=== PATIENT | male | born 1945 | race Caucasian/White ===

== ENCOUNTER 2017-10-18 07:51 | Outpatient (CLI) | payer MEDICARE, BC ==
[~2017-10-18] VITALS: Ht 182.9 cm; Wt 65.8 kg
--- NOTE | ~2017-10-18 | HEMODYNAMI ---
PATIENT:JUAN YEE MEDICAL RECORD: [id number] : 43 LOCATION:[address] ADMISSION DATE: 10/18/17 Generatedon:10/19/20178:47 Patient name: JUAN YEE Patient #: [id number] SSN: : 1945 Date of study: 10/19/2017 Page: Of Hemodynamic Procedure Report Patient Data Patient Demographics Procedure consent was obtained First Name: JUAN Gender: Male Last Name: NAKIA : 1945 [facility] Initial: KAMALJIT Age: 72 year(s) Patient #: [id number] Race: Unknown Additional ID: [id number] Contact details [address]: [address] [place] [address] [address]IVE State: [place] City: [place] Zip code: [address] Past Medical History Allergies: No known allergies Admission Admission Data Admission Date: 10/18/2017 Admission Time: 7:51 Room #: 2124 Procedure Procedure Types Cath Procedure PCI Procedure PTCA PTCA Initial Miscellaneous Procedures Moderate Sedation up to 30 minutes Peripheral Cath Diagnostic Procedure Cath Peripheral Gpkkl-Vzqgfkc-Mqr-Off Peripheral vascular Intervention Stent Stent Iliac w/plasty Initial Procedure Description Procedure Date Procedure Date: 10/19/2017 Procedure Start Time: 8:16 Procedure End Time: 8:47 Procedure Staff Name Function Kaushal Mccoy MD Performing Physician Monica Estrada RT Monitor Juliocesar Houser RT Scrub Moody Boykin RN Nurse Radha Sanchez RN Nurse Procedure Data Cath Procedure Fluoroscopy Diagnostic fluoroscopy Total fluoroscopy Time: 6.4 time: 6.4 min min Diagnostic fluoroscopy Total fluoroscopy dose: 394 dose: 394 mGy mGy Contrast Material Contrast Material Type Amount (ml) Isovue 300 114 Entry Location Entry Primary Successful Side Size Upsize 1 Upsize Entry Closure Irving ccessful Closure Location (Fr) (Fr) 2 (Fr) Remarks Device Remarks Femoral Right 6 Fr 6 Fr Exoseal artery Short Mid-Length Estimated blood loss: 10 ml Diagnostic catheters Device Type Used For End Catheter Placement Diagnostic Infinity 5Fr Abdominal Pigtail catheter aortogram with runoff Procedure Complications No complications Procedure Medications Medication Administration Route Dosage 0.9% NaCl I.V. 100 ml/hr Oxygen NC 2 l/min Heparin Flush Bag added to field 2 bags (1000units/500ml NS) Lidocaine 2% added to field 20 Fentanyl I.V. 50 mcg Versed I.V. 2 mg Versed I.V. 1 mg Fentanyl I.V. 50 mcg Heparin Bolus I.V. 5000 units Versed I.V. 1 mg Fentanyl I.V. 50 mcg Fentanyl I.V. 25 mcg Hemodynamics Rest Heart Rate: 76 (bpm) Snapshots Pre Cath Intra NCS Post Cath Vital Signs Time Heart Resp SPO2 etCO2 NIBP (mmHg) Rhythm Pain Sedation Rate (ipm) (%) (mmHg) Status Level (bpm) 7:49:43 75 17 94 18 130/80(108) NSR 0 (11) 10(A) , No pain 7:54:22 72 16 95 28.5 132/74(109) NSR 0 (11) 10(A) , No pain 7:59:02 69 14 95 32.3 147/74(105) NSR 0 (11) 10(A) , No pain 8:03:45 74 14 95 30 120/82(106) NSR 0 (11) 10(A) , No pain 8:08:44 64 14 95 18 Measuring NSR 0 (11) 10(A) , No pain 8:08:56 66 14 95 17.2 125/75(109) NSR 0 (11) 10(A) , No pain 8:13:33 65 14 96 10.5 130/79(111) NSR 0 (11) 10(A) , No pain 8:18:09 69 19 95 28.6 140/77(109) NSR 0 (11) 9(A) , No pain 8:22:50 65 17 95 33 146/74(110) NSR 0 (11) 9(A) , No pain 8:27:33 67 18 96 30.8 139/70(111) NSR 0 (11) 10(A) , No pain 8:32:15 73 18 96 33 133/65(97) NSR 0 (11) 9(A) , No pain 8:36:52 80 18 96 30.8 147/82(103) NSR 0 (11) 10(A) , No pain 8:41:32 74 18 97 32.3 144/75(109) NSR 0 (11) 10(A) , No pain 8:46:13 77 11 96 35.3 133/78(100) NSR 0 (11) 10(A) , No pain Medications Time Medication Route Dose Verified Delivered Reason Note s Effectiveness by by 7:49:28 0.9% NaCl I.V. 100ml/hr Kaushal Uriostegui used for Darius Boykin RN procedure 7:49:44 Oxygen NC 2 l/min Kaushal Uriostegui used for Darius Boykin RN procedure 7:50:00 Heparin Flush added 2 bags Kaushal Easley used for Bag to Darius Mccoy MD procedure (1000units/500ml field NS) 7:50:19 Lidocaine 2% added 20ml Kaushal Easley for local to vial Darius Mccoy MD anesthetic field 8:16:04 Fentanyl I.V. 50 mcg Kaushal Radha for sedation Darius Sanchez RN 8:16:16 Versed I.V. 2 mg Kaushal Radha for sedation Darius Sanchez RN 8:21:38 Versed I.V. 1 mg Kaushal Radha for sedation Darius Sanchez RN 8:21:45 Heparin Bolus I.V. 5000 Kaushal Radha for veri fied units Darius Sanchez RN anticoagulation with 8:21:45 Fentanyl I.V. 50 mcg Kaushal Radha for sedation Darius Sanchez RN 8:25:30 Versed I.V. 1 mg Kaushal Jimenezfany for sedation Darius Sanchez RN 8:25:39 Fentanyl I.V. 50 mcg Kaushal Radha for sedation Darius Sanchez RN 8:28:03 Fentanyl I.V. 25 mcg Kaushal Radha for sedation Darius Sanchez RN Procedure Log Time Note 7:31:04 Moody Boykin RN sent for patient. Start room use. 7:31:05 Time tracking: Regular hours 7:31:11 Plan of Care:Hemodynamics will remain stable., Cardiac rhythm will remain stable., Comfort level will be maintained., Respiratory function will remain adequate., Patient/ family verbilizes understanding of procedure., Procedure tolerated without complication., Recovers from procedure without complications.. 7:38:58 Patient received from PCU to CCL 1 Alert and oriented. Tansferred to table in Supine position. 7:39:00 Warm blankets applied, and marino hugger turned on for patient comfort. 7:39:01 Correct patient and procedure confirmed by team. 7:39:02 Signed procedure consent form obtained from patient. 7:39:03 ECG and BP/O2 sat monitors applied to patient. 7:39:50 H&P Date Dictated: 10/18/2017 Within 30 days and on chart.. 7:42:46 Pre-procedure instructions explained to patient. 7:42:47 Pre-op teaching completed and patient verbalized understanding. 7:42:48 Family in waiting room. 7:42:49 Patient NPO since Midnight. 7:42:54 Patient allergic to No known allergies 7:42:56 Is the patient allergic to Iodine/contrast media? No. 7:42:57 Is patient on blood thinner?Yes 7:42:59 ACC The patient was administered the following blood thiners within the last 24 hours: ACCPlavix 7:43:01 Patient diabetic? No. 7:43:04 Previous problem with sedation/anesthesia? Yes nausea 7:43:06 Snore? No 7:43:06 Sleep apnea? No 7:43:07 Deviated septum? No 7:43:08 Opens mouth fully? Yes 7:43:09 Sticks out tongue? Yes 7:43:11 Airway obstruction? No ? 7:43:14 Dentures? Yes In tight 7:47:05 Pre procedure: right dorsailis pedis pulse 2+ Normal; easily identifiable; not easily obliterated 7:47:10 Patient pain scale 0/10 ?. 7:47:22 IV patent on arrival in left forearm with 0.9% NaCl at KVO. 7:47:32 Lab results completed and on chart. 7:47:36 Right groin area was prepped with chlora-prep and draped in sterile fashion 7:47:38 Alarms reviewed by R. N. 7:47:38 Sharps counted by scrub and verified by R.N. 7:47:43 Use device set Femoral PCI 7:47:44 Acist Syringe opened to sterile field. 7:47:44 Acist Hand Control opened to sterile field. 7:47:45 Bag Decanter opened to sterile field. 7:47:45 Medline Cath Pack opened to sterile field. 7:47:46 Terumo 6Fr [place] Sheath opened to sterile field. 7:47:46 St Solitario 260cm J .035 wire opened to sterile field. 7:47:47 Merit BasixCompak Inflation Kit opened to sterile field. 7:47:48 Acist Manifold opened to sterile field. 7:47:48 Tegaderm 4 x 4 opened to sterile field. 7:48:47 Baseline sample Acquired. 7:48:54 Vital chart was started 7:48:57 Rhythm: sinus rhythm 7:49:03 Full Disclosure recording started 7:49:28 0.9% NaCl 100ml/hr I.V. was administered by Moody Boykin RN; used for procedure; 7:49:44 Oxygen 2 l/min NC was administered by Moody Boykin RN; used for procedure; 7:50:00 Heparin Flush Bag (1000units/500ml NS) 2 bags added to field was administered by Kaushal Mccoy MD; used for procedure; 7:50:19 Lidocaine 2% 20ml vial added to field was administered by Kaushal Mccoy MD; for local anesthetic; 8:00:04 Physician paged 8:03:29 Zero performed for pressure channel P1 8:03:33 Zero performed for pressure channel P1 8:03:36 Zero performed for pressure channel P1 8:03:39 Zero performed for pressure channel P1 8:13:22 Final Timeout: patient, procedure, and site verified with staff and physician. All members of the team are in agreement. 8:13:24 Right groin site verified by team. 8:13:27 Physical assessment completed. ASA score P 2 - A patient with mild systemic disease as per Kaushal Mccoy MD. 8:13:31 Sedation plan: IV Moderate Sedation Medication:Versed, Fentanyl 8:13:43 Cordis 6FR XB 4.0 guide catheter opened to sterile field. 8:16:04 Fentanyl 50 mcg I.V. was administered by Radha Sanchez RN; for sedation; 8:16:16 Versed 2 mg I.V. was administered by Radha Sanchez RN; for sedation; 8:16:16 Procedure started. 8:16:21 Local anesthetic to right femoral artery with Lidocaine 2% by Kaushal Mccoy MD.INITIAL ACCESS ONLY 8:16:39 A 6 Fr Short sheath was inserted into the Right Femoral artery 8:17:44 Terumo ANGLE 260cm glide wire opened to sterile field. 8:18:12 A Diagnostic Infinity 5Fr Pigtail catheter was advanced over the wire and used for Abdominal aortogram with runoff. 8:19:56 Cordis 6Fr Brite Tip 35cm Sheath opened to sterile field. 8:20:08 Procedure type changed to Cath procedure, PCI procedure, PTCA, PTCA Initial, Miscellaneous Procedures, Moderate Sedation up to 30 minutes, Peripheral Cath Diagnostic Procedure, Cath Peripheral, Rwgcb-Kuprhzh-Qqn-Off, Peripheral vascular Intervention, Stent, Stent Iliac w/plasty Initial 8:21:08 Catheter removed. 8:21:24 Sheath upsized to a 6 Fr Mid-Length. 8:21:38 Versed 1 mg I.V. was administered by Radha Sanchez RN; for sedation; 8:21:45 Heparin Bolus 5000 units I.V. was administered by Radha Sanchez RN; for anticoagulation; verified with 8:21:45 Fentanyl 50 mcg I.V. was administered by Radha Sanchez RN; for sedation; 8:25:30 Versed 1 mg I.V. was administered by Rahda Sanchez RN; for sedation; 8:25:39 Fentanyl 50 mcg I.V. was administered by Radha Sanchez RN; for sedation; 8:25:51 Inflation Number: 1 A Cordis Azeb 7 x 18 x 135 stent was prepped and advanced across the Mid External Iliac, Right. The stent was deployed at 11 RAMA for 0:16 (min:sec). 8:26:23 Stent catheter was removed intact over wire. 8:27:35 6 Fr XB 4.0 guide catheter was inserted over the wire 8:28:03 Fentanyl 25 mcg I.V. was administered by Radha Sanchez RN; for sedation; 8:28:24 Guide Catheter removed. unable to cannulate vessel. 8:30:18 [place] Sci Mach 1 6Fr Q 5.0 guide catheter opened to sterile field. 8:30:27 6 Fr Q5.0 guide catheter was inserted over the wire 8:32:08 Choice PT ES wire advanced. 8:34:37 Inflation number: 1 A Euphora 1.5 x 20 Balloon was prepped and advanced across the Prox CX, then inflated to 21 RAMA for 0:12 (min:sec). 8:34:51 Inflation number: 2 The Euphora 1.5 x 20 Balloon was reinflated across the Prox CX, to 21 RAMA for 0:12 (min:sec). 8:35:16 Inflation number: 3 The Euphora 1.5 x 20 Balloon was reinflated across the Prox CX, to 21 RAMA for 0:09 (min:sec). 8:36:00 Balloon removed over the wire. 8:36:59 Inflation number: 4 A Euphora 2.0 x 15 Balloon was prepped and advanced across the Prox CX, then inflated to 15 RAMA for 0:12 (min:sec). 8:37:09 Inflation number: 5 The Euphora 2.0 x 15 Balloon was reinflated across the Prox CX, to 15 RAMA for 0:07 (min:sec). 8:37:57 Balloon removed over the wire. 8:39:26 Wire removed. 8:39:26 Guide catheter removed. 8:39:41 UNABLE TO OPEN CIRC. PROCEDURE ABORTED. 8:39:48 Sheath removed intact; hemostasis achieved with Exoseal to the Right Femoral artery. 8:39:56 Cordis 6Fr Exoseal opened to sterile field. 8:39:58 Procedure ended.(Physican Out) 8:40:15 Fluoroscopy time 06.40 minutes. 8:40:19 Flurop Dose total: 394 8:40:19 Fluoroscopy dose: 394 mGy 8:40:28 Contrast amount:Isovue 300 114ml. 8:40:32 Sharps counted by scrub and verified by R.N. 8:40:33 Insertion/operative site no bleeding no hematoma. 8:40:36 Post-op/insertion site Right Femoral artery dressed using a 4 x 4 and Tegaderm. 8:40:39 Post right femoral artery:stable, clean and dry 8:40:40 Post Procedure Pulses reassessed and unchanged 8:40:43 Post-procedure physical assessment completed. ASA score P 2 - A patient with mild systemic disease as per Kaushal Mccoy MD. 8:40:45 Post procedure rhythm: unchanged. 8:40:48 Estimated blood loss: 10 ml 8:40:49 Post procedure instruction explained to patient.Patient verbalizes understanding. 8:40:49 Patient needs reinforcement of post procedure teaching. 8:41:25 Procedure Complication : No complications 8:41:27 See physician's report for complete and final results. 8:44:03 [place] Sci Choice PT Extra Support J 300cm .014 gu opened to sterile field. 8:45:13 Procedure and supply charges have been captured, reviewed, submitted and are correct. 8:47:12 Vital chart was stopped 8:47:16 Report given to PCU. 8:47:19 Patient transfered to PCU with Bed. 8:47:28 Procedure ended. 8:47:28 Full Disclosure recording stopped 8:47:31 End room use (Document Last) Intervention Summary Intervention Notes Time ActionType Lesion and Equipment Action# Pressure Duration Attributes Used 8:25:51 Place stent Mid Cordis 1 11 00:16 External Azeb 7 Iliac, x 18 x Right 135 stent 8:34:37 Inflate Prox CX Euphora 1 21 00:12 balloon 1.5 x 20 Balloon 8:34:51 Reinflate Prox CX Euphora 2 21 00:12 balloon 1.5 x 20 Balloon 8:35:16 Reinflate Prox CX Euphora 3 21 00:09 balloon 1.5 x 20 Balloon 8:36:59 Inflate Prox CX Euphora 4 15 00:12 balloon 2.0 x 15 Balloon 8:37:09 Reinflate Prox CX Euphora 5 15 00:07 balloon 2.0 x 15 Balloon Device Usage Item Name Manufacture Quantity Catalog Number Hospital Part Current Minim al Lot# / Charge Number Stock Stock Serial# Code Acist Acist 1 33244 [id number] [id number] [id number] 20 Syringe Medical Systems Inc Acist Hand Acist 1 52693 625997 039224 [id number] 5 Control Medical Systems Inc Bag Microtek 1 2002S 641000 17246 [id number] 5 DecMegapolygon Corporation Medical Inc. Medline Cardinal 1 [id number] 332075 68844 547925 5 Cath Pack Quant the News Terumo 6Fr Terumo 1 [id number] 572011 596583 797255 [address] Solitario 1 [id number] 764170 793958 084229 30 260cm J .035 wire Merit Merit 1 [id number] 834329 213142 174121 15 BasixComSangamo [employer]iences Medical Inflation Kit Acist Acist 1 93650 276506 780861 003277 5 Manifold Medical Systems Inc Tegaderm 4 3M 1 1626W 415509 067736 913682 5 x 4 Cordis 6FR Cardinal 1 [id number] 008051 191839 093495 2 XB 4.0 Health guide catheter Terumo Terumo 1 [id number] 033960 736926 489161 5 ANGLE 260cm glide wire Diagnostic Cardinal 1 [id number] 414032 714332 199644 5 Infinity Health 5Fr Pigtail catheter Cordis 6Fr Cardinal 1 [id number] 849832 144461 605592 1 Brite Tip Health 35cm Sheath Cordis Cardinal 1 [id number] 588124 701838 5 [id number] Azeb 7 x Health 18 x 135 stent [place] Sci [place] 1 [id number] 493025 514023 415379 0 Mach 1 6Fr Scientific Q 5.0 guide catheter Euphora 1.5 Medtronic 1 [id number] 738067 153039 875892 5 [id number] x 20 Balloon Euphora 2.0 Medtronic 1 [id number] 925219 847110 071561 5 [id number] x 15 Balloon Cordis 6Fr Cardinal 1 [id number] 022567 416547 981381 10 Exoseal Health [place] Sci [place] 1 [id number] 124716 268736 221474 5 Choice PT Scientific Extra Support J 300cm .014 gu Signature Audit [place] Stage Time Signature Unsigned Intra-Procedure 10/19/2017 Monica 8:47:46 AM Counts RT(R) Signatures Monitor : Monica Signature : Counts RT Date : Time : [facility] [address] [place] [address]
--- NOTE | ~2017-10-18 | HEMODYNAMI ---
PATIENT:JUAN YEE MEDICAL RECORD: [id number] : 43 LOCATION:D.CAT ADMISSION DATE: 10/18/17 Generatedon:10/18/201711:34 Patient name: JUAN YEE Patient #: [id number] SSN: : 1945 Date of study: 10/18/2017 Page: Of Hemodynamic Procedure Report Patient Data Patient Demographics Procedure consent was obtained First Name: JUAN Gender: Male Last Name: NAKIA : 1945 Middle Initial: KAMALJIT Age: 72 year(s) Patient #: [id number] Race: Unknown Additional ID: [id number] Contact details Address: [address] [place] [address] DRIVE State: [place] City: [place] Zip code: [address] Past Medical History Allergies: No known allergies Admission Admission Data Admission Date: 10/18/2017 Admission Time: 7:51 Procedure Procedure Types Cath Procedure Diagnostic Procedure LHC LHC w/Coronaries FFR/IVUS Intra-Coronary IVUS Initial PCI Procedure Coronary Stent Coronary Stent Initial Miscellaneous Procedures Moderate Sedation up to 30 minutes Procedure Description Procedure Date Procedure Date: 10/18/2017 Procedure Start Time: 11:08 Procedure End Time: 11:33 Procedure Staff Name Function Kaushal Mccoy MD Performing Physician Monica Estrada RT Monitor Carolyne Camargo RT Scrub Radha Sanchez RN Nurse Moody Boykin RN Nurse Procedure Data Cath Procedure Fluoroscopy Diagnostic fluoroscopy Total fluoroscopy Time: 8.5 time: 8.5 min min Diagnostic fluoroscopy Total fluoroscopy dose: 601 dose: 601 mGy mGy Contrast Material Contrast Material Type Amount (ml) Isovue 300 126 Entry Location Entry Primary Successful Side Size Upsize Upsize Entry Closure [place] ccessful Closure Location (Fr) 1 (Fr) 2 (Fr) Remarks Device Remarks Radial Right 6 Fr Mechanical artery Short Compression Estimated blood loss: 10 ml Diagnostic catheters Device Type Used For End Catheter Placement Diagnostic Terumo 5Fr LV Angiography [employer] [place] 110cm catheter Diagnostic Terumo 5Fr Right Coronary [employer] [place] 110cm catheter Angiography Procedure Complications No complications Procedure Medications Medication Administration Route Dosage 0.9% NaCl I.V. 100 ml/hr Oxygen NC 2 l/min Lidocaine 2% added to field 20 Heparin Flush Bag added to field 2 bags (1000units/500ml NS) Radial Cocktail added to field 1 syringe (Verapomil 2mg/Nitro 400mcg/Heparin 1500units) Versed I.V. 1 mg Fentanyl I.V. 50 mcg Fentanyl I.V. 50 mcg Versed I.V. 1 mg Heparin Bolus I.V. 4000 units Versed I.V. 1 mg Hemodynamics Rest Heart Rate: 58 (bpm) Snapshots Pre Cath Intra NCS Post Cath Vital Signs Time Heart Resp SPO2 etCO2 NIBP (mmHg) Rhythm Pain Sedation Rate (ipm) (%) (mmHg) Status Level (bpm) 10:28:56 62 17 96 12.8 135/73(114) NSR 0 (11) 10(A) , No pain 10:33:36 62 16 97 13.5 134/79(115) NSR 0 (11) 10(A) , No pain 10:38:17 50 14 99 15.8 129/70(110) NSR 0 (11) 10(A) , No pain 10:43:16 53 14 97 3 Measuring NSR 0 (11) 10(A) , No pain 10:43:30 52 14 98 1.5 130/72(108) NSR 0 (11) 10(A) , No pain 10:48:09 54 16 95 0.7 132/71(101) NSR 0 (11) 10(A) , No pain 10:52:50 54 16 97 8.2 138/69(100) NSR 0 (11) 10(A) , No pain 10:57:30 50 16 95 16.5 134/69(108) NSR 0 (11) 10(A) , No pain 11:02:09 61 14 97 26.3 144/72(96) NSR 0 (11) 10(A) , No pain 11:07:08 60 19 97 4.5 Measuring NSR 0 (11) 9(A) , No pain 11:07:16 56 19 97 13.5 135/64(107) NSR 0 (11) 9(A) , No pain 11:11:52 73 14 97 9.7 116/66(85) NSR 0 (11) 10(A) , No pain 11:16:29 74 16 95 11.3 126/62(88) NSR 0 (11) 9(A) , No pain 11:21:05 73 16 94 2.2 119/69(102) NSR 0 (11) 9(A) , No pain 11:25:42 73 17 94 0 124/68(105) NSR 0 (11) 10(A) , No pain 11:30:18 71 19 94 9 130/70(101) NSR 0 (11) 10(A) , No pain Medications Time Medication Route Dose Verified Delivered Reason Not es Effectiveness by by 10:30:41 0.9% NaCl I.V. 100ml/hr Kaushal Garcia Per physician Darius Sanchez RN 10:30:56 Oxygen NC 2 l/min Kaushal Jimenezfany used for Darius Sanchez RN procedure 10:31:12 Lidocaine 2% added 20ml Kaushal Kaushal for local to vial Darius Mccoy MD anesthetic field 10:44:20 Heparin Flush added 2 bags Kaushalcaterina Easley used for Bag to Darius Mccoy MD procedure (1000units/500ml field NS) 10:44:37 Radial Cocktail added 1 Kaushal Kaushal for (Verapomil to syringe Darius Mccoy MD vasodilation 2mg/Nitro field 400mcg/Heparin 1500units) 11:07:12 Versed I.V. 1 mg Kaushal Jimenezfany for sedation Darius Sanchez RN 11:07:23 Fentanyl I.V. 50 mcg Kaushal Jimenezfany for sedation Darius Sanchez RN 11:09:49 Fentanyl I.V. 50 mcg Kaushal Jimenezfany for sedation Darius Sanchez RN 11:10:02 Versed I.V. 1 mg Kaushal Radha for sedation Darius Sanchez RN 11:15:26 Heparin Bolus I.V. 4000 Kaushal Radha for abiodun ified units Darius Sanchez RN anticoagulation by 11:15:54 Versed I.V. 1 mg Kaushal Jimenezfany for sedation Darius Sanchez RN Procedure Log Time Note 10:11:35 Moody Boykin RN sent for patient. Start room use. 10:11:36 Time tracking: Regular hours 10:11:40 Plan of Care:Hemodynamics will remain stable., Cardiac rhythm will remain stable., Comfort level will be maintained., Respiratory function will remain adequate., Patient/ family verbilizes understanding of procedure., Procedure tolerated without complication., Recovers from procedure without complications.. 10:19:12 Patient received from Pre/Post Procedure Room to CCL 1 Alert and oriented. Tansferred to table in Supine position. 10:19:14 Warm blankets applied, and marino hugger turned on for patient comfort. 10:19:14 Correct patient and procedure confirmed by team. 10:19:16 Signed procedure consent form obtained from patient. 10:19:17 ECG and BP/O2 sat monitors applied to patient. 10:28:04 Vital chart was started 10:30:41 0.9% NaCl 100ml/hr I.V. was administered by Radha Sanchez RN; Per physician; 10:30:56 Oxygen 2 l/min NC was administered by Radha Sanchez RN; used for procedure; 10:31:12 Lidocaine 2% 20ml vial added to field was administered by Kaushal Mccoy MD; for local anesthetic; 10:32:06 Baseline sample Acquired. 10:32:07 Full Disclosure recording started 10:32:10 Rhythm: sinus tachycardia 10:33:03 H&P Date Dictated: 10/18/2017 Within 30 days and on chart., H&P Addendum completed by physician on day of procedure. (MUST COMPLETE FOR ALL OUTPATIENTS). 10:33:05 Pre-procedure instructions explained to patient. 10:33:05 Pre-op teaching completed and patient verbalized understanding. 10:33:06 Family in waiting room. 10:33:08 Patient NPO since Midnight. 10:33:17 Patient allergic to No known allergies 10:33:20 Is the patient allergic to Iodine/contrast media? No. 10:33:22 Is patient on blood thinner?Yes 10:33:27 ACC The patient was administered the following blood thiners within the last 24 hours: ACCPlavix 10:33:29 Patient diabetic? No. 10:34:26 Previous problem with sedation/anesthesia? No ? 10:34:26 Snore? No 10:34:27 Sleep apnea? No 10:34:28 Deviated septum? No 10:34:29 Opens mouth fully? Yes 10:34:30 Sticks out tongue? Yes 10:34:32 Airway obstruction? No ? 10:34:34 Dentures? Yes In 10:34:37 Pre procedure: right dorsailis pedis pulse 2+ Normal; easily identifiable; not easily obliterated 10:34:39 Modified Abel's test Ulnar < 7 seconds 10:34:41 Patient pain scale 0/10 ?. 10:34:46 IV patent on arrival in left hand with 0.9% NaCl at [facility]. 10:34:51 Lab results completed and on chart. 10:34:56 Right Radial & Right Groin area was prepped with chlora-prep and draped in sterile fashion 10:34:56 Alarms reviewed by R. N. 10:34:57 Sharps counted by scrub and verified by R.N. 10:35:02 Use device set Radial Dx 10:35:03 Acist Syringe opened to sterile field. 10:35:04 Medline Cath Pack opened to sterile field. 10:35:06 Bag Decanter opened to sterile field. 10:35:06 Terumo 6Fr Slender Glidesheath opened to sterile field. 10:35:06 St Solitario 260cm J .035 wire opened to sterile field. 10:35:07 Acist Hand Control opened to sterile field. 10:35:07 Acist Manifold opened to sterile field. 10:35:07 Tegaderm 4 x 4 opened to sterile field. 10:35:08 MBrace Wrist Support opened to sterile field. 10:37:43 Zero performed for pressure channel P1 10:44:20 Heparin Flush Bag (1000units/500ml NS) 2 bags added to field was administered by Kaushal Mccoy MD; used for procedure; 10:44:37 Radial Cocktail (Verapomil 2mg/Nitro 400mcg/Heparin 1500units) 1 syringe added to field was administered by Kaushal Mccoy MD; for vasodilation; 11:06:43 Final Timeout: patient, procedure, and site verified with staff and physician. All members of the team are in agreement. 11:06:45 Right Radial site verified by team. 11:06:48 Physical assessment completed. ASA score P 2 - A patient with mild systemic disease as per Kaushal Mccoy MD. 11:06:51 Sedation plan: IV Moderate Sedation Medication:Versed, Fentanyl 11:07:12 Versed 1 mg I.V. was administered by Radha Sanchez RN; for sedation; 11:07:23 Fentanyl 50 mcg I.V. was administered by Radha Sanchez RN; for sedation; 11:07:28 Procedure started. 11:08:44 Local anesthetic to right radial artery with Lidocaine 2% by Kaushal Mccoy MD.INITIAL ACCESS ONLY 11:09:13 A 6 Fr Short sheath was inserted into the Right Radial artery 11:09:49 Fentanyl 50 mcg I.V. was administered by Radha Sanchez RN; for sedation; 11:09:54 A Diagnostic Terumo 5Fr [place] 110cm catheter was advanced over the wire and used for LV Angiography. 11:10:02 Versed 1 mg I.V. was administered by Radha Sanchez RN; for sedation; 11:10:35 LV gram done using WHITTEN 11:10:38 Injector settings: Ml/sec: 5, Volume: 15, 11:10:50 EF : 30 % 11:11:14 A Diagnostic Terumo 5Fr [place] 110cm catheter was advanced over the wire and used for Right Coronary Angiography. 11:11:31 Catheter removed. 11:11:39 Cordis 6FR XBLAD 3.5 guide catheter opened to sterile field. 11:12:15 6 Fr XBLAD 3.5 guide catheter was inserted over the wire 11:12:55 LCA angiography performed. 11:14:01 Merit BasixCompak Inflation Kit opened to sterile field. 11:14:08 [place] IVUS Catheter opened to sterile field. 11:14:53 [place] IPLogic Choice PT Extra Support 182cm wire opened to sterile field. 11:15:23 CHOICE PT ES wire advanced. 11:15:26 Heparin Bolus 4000 units I.V. was administered by Radha Sanchez RN; for anticoagulation; verified by 11:15:51 IVUS catheter advanced over wire. 11:15:54 Versed 1 mg I.V. was administered by Radha Sanchez RN; for sedation; 11:18:44 IVUS pass to LAD lesion performed. 11:18:46 IVUS catheter removed over wire. 11:22:43 The Greenwood RX 3.5 x 26 stent was advanced then removed because of failure to cross lesion 11:24:20 Inflation number: 1 A Euphora 3.5 x 20 Balloon was prepped and advanced across the Prox LAD, then inflated to 17 RAMA for 0:06 (min:sec). 11::53 Balloon removed over the wire. 11:26:32 Inflation Number: 2 A Narendra RX 3.5 x 26 stent was prepped and advanced across the Prox LAD. The stent was deployed at 17 RAMA for 0:10 (min:sec). 11::58 Stent catheter was removed intact over wire. 11::59 Wire removed. 11:26:59 Guide catheter removed. 11:27:13 Sheath removed intact; hemostasis achieved with Mechanical Compression to the Right Radial artery. 11:27:21 Procedure ended.(Physican Out) ::34 Fluoroscopy time 08.50 minutes. ::37 Fluoroscopy dose: 601 mGy 11::37 Flurop Dose total: 601 11:27:51 Contrast amount:Isovue 300 126ml. 11:27:53 Sharps counted by scrub and verified by R.N. 11:27:55 TR band inflated with 9cc of air. 11:28:30 Insertion/operative site no bleeding no hematoma. 11:28:39 Post right radial artery:stable, clean and dry 11:28:41 Post Procedure Pulses reassessed and unchanged 11::44 Post-procedure physical assessment completed. ASA score P 2 - A patient with mild systemic disease as per Kaushal Mccoy MD. 11:28:46 Post procedure rhythm: unchanged. 11:28:49 Estimated blood loss: 10 ml 11:28:51 Post procedure instruction explained to patient.Patient verbalizes understanding. 11:28:52 Patient needs reinforcement of post procedure teaching. 11:29:34 Procedure type changed to Cath procedure, Diagnostic procedure, LHC, LHC w/Coronaries, FFR/IVUS, Intra-Coronary IVUS Initial, PCI procedure, Coronary Stent, Coronary Stent Initial, Miscellaneous Procedures, Moderate Sedation up to 30 minutes 11:29:44 Terumo TR Band Standard opened to sterile field. 11:31:07 Procedure and supply charges have been captured, reviewed, submitted and are correct. 11:31:24 Procedure Complication : No complications 11:31:27 See physician's report for complete and final results. 11:33:37 Vital chart was stopped 11:33:39 Report given to PCU. 11:33:44 Patient transfered to PCU with Bed. 11:33:53 Procedure ended. 11:33:53 Full Disclosure recording stopped 11:33:59 End room use (Document Last) Intervention Summary Intervention Notes Time ActionType Lesion and Equipment Action# Pressure Duration Attributes Used 11:22:43 Discard Greenwood RX Stent 3.5 x 26 stent 11:24:20 Inflate Prox LAD Euphora 1 17 00:06 balloon 3.5 x 20 Balloon 11:26:32 Place stent Prox LAD Narendra RX 2 17 00:10 3.5 x 26 stent Device Usage Item Name Manufacture Quantity Catalog Number Hospital Part Current Mini mal Lot# / Charge Number Stock Stock Serial# Code Acist Acist 1 27436 657239 000545 289690 20 Syringe Medical Systems Inc Medline Cardinal 1 [id number] 194591 73178 381620 5 Cath Pack Health Bag Microtek 1 2002S 752953 58374 913854 5 [employer] Terumo 6Fr Terumo 1 [id number] 621930 931216 727650 [address] Solit[address] St Solitario 1 424211 402905 458359 428222 30 260cm J .035 wire Acist Hand Acist 1 06641 386640 142857 718683 5 Control Medical Systems Inc Acist Acist 1 80385 306719 775770 610255 5 Manifold Medical Systems Inc Tegaderm 4 3M 1 1626W 639379 885253 829438 5 x 4 MBrace Advanced 1 140-0250-00 772784 18804 134192 5 Wrist Vascular Support Dynamics Diagnostic Terumo 1 40-8796 337682 559617 421753 5 Terumo 5Fr [place] 110cm catheter Cordis 6FR Cardinal 1 [id number] 711848 179720 659758 10 XBLAD 3.5 Health guide catheter Merit Merit 1 AI7425 253495 552282 341606 15 ROI land investment Medical Inflation Kit [place] 1 [id number] 541143 158312 471196 8 [place] IVUS Catheter [place] Sci [place] 1 [id number] 452183 409915 941756 5 Choice PT Scientific Extra Support 182cm wire [place] RX 3.5 Medtronic 1 [id number] 900532 4383159 048163 5 [id number] x 26 stent Euphora 3.5 Medtronic 1 [id number] 037764 211960 680815 5 [id number] x 20 Balloon Terumo TR Terumo 1 [id number] 684032 625171 993915 40 Band Standard Signature Audit Bryce Stage Time Signature Unsigned Intra-Procedure 10/18/2017 Monica 11:34:11 AM Counts RT(R) Signatures Monitor : Monica Signature : Counts RT Date : Time : [place] [id number]
[2017-10-18] MEDS ORDERED: LIPITOR20 MG PO (08:29)
[2017-10-18] MEDS ORDERED: PLAVIX75 MG PO (08:29)
[2017-10-18] MEDS ORDERED: COREG 3.1253.125 MG PO (08:29)
[2017-10-18] MEDS ORDERED: GEMFIBROZIL600 MG PO (08:29)
[2017-10-18] MEDS ORDERED: LOVAZA1 G PO (08:30)
[2017-10-18] MEDS ORDERED: BAYER CHEWABLE81 MG PO (08:30)
[2017-10-18] MEDS ORDERED: MUCINEX600 MG PO (08:30)
[2017-10-18 08:40] VITALS: BP 136/73; BMI 21.4
[2017-10-18 08:46] LABS: BASOPHILS 0.5 % (0-2); EOSINOPHILS 1.3 % (0-7); HEMATOCRIT 45.9 % (42.0-54.0); HEMOGLOBIN 15.3 g/dL (13.5-17.5); IMMATURE GRANULOCYTES 0.3 % (0-5); LYMPHOCYTES 25.9 % (15-50); MCH 33.6 pg (26.0-34.0); MCHC 33.3 g/dL (31.0-37.0); MCV 100.7 fL (80.0-100.0); MEAN PLATELET VOLUME 10.2 fL (7.4-10.4); MONOCYTES 11.1 % (2-11); NEUTROPHILS 60.9 % (40-80); PLATELET COUNT 154 10x3/uL (130-400); RBC 4.56 10x6/uL (4.20-6.10)
[2017-10-18 09:02] LABS: CALC OSMOLALITY 278 mosm/kg (275-300); CALCIUM 8.9 mg/dL (8.5-10.1); CARBON DIOXIDE 29.3 mmol/L (21.0-32.0); CHLORIDE - SERUM 101 mmol/L (98-107); GLUCOSE 106 mg/dL (74-106); POTASSIUM - SERUM 4.4 mmol/L (3.5-5.1); SODIUM 139 mmol/L (136-145); UREA NITROGEN 14 mg/dL (7-18); eGFR NON AFRICAN AMERICAN 78 mL/min (90-120)
[2017-10-18 16:18] VITALS: BP 140/71
[2017-10-18 17:35] VITALS: Ht 182.9 cm; Wt 65.8 kg
[2017-10-18 20:00] VITALS: BP 135/72
[2017-10-19 00:55] VITALS: BP 105/52
[2017-10-19 05:35] VITALS: BP 134/70
[2017-10-19 08:42] VITALS: BP 132/76
--- NOTE | 2017-11-02 12:14 | HP ---
PATIENT: JUAN YEE MEDICAL RECORD: [id number] ACCOUNT: [id number] LOCATION:SUSIE : 43 ADMISSION DATE: 10/18/17 HISTORY AND PHYSICAL EXAMINATION DIAGNOSES: 1. Angina. 2. Coronary artery disease. 3. Hypertension. 4. Hyperlipidemia. 5. Previous PTCA and stent. HISTORY: Mr. Yee presents with anginal symptomatology. Nuclear stress test reveals fixed perfusion defect inferiorly, which is not new; however, there is reversibility anteriorly. This is new. REVIEW OF SYSTEMS: The patient reports easy bruising but reports no swollen glands. The patient reports no fever, no night sweats, no significant weight gain, no significant weight loss. No significant exercise tolerance. The patient reports no dry eyes, no irritation, no vision change. Patient reports no difficulty hearing and no ear pain. Patient reports no frequent nose bleeds or nose and sinus problems. Patient reports on arm pain on exertion. No shortness of breath while lying down. No history of heart murmur. Patient reports no cough, no wheezing or coughing up blood. Patient reports no abdominal pain, no vomiting. Normal appetite. No diarrhea and not vomiting blood. No nausea and no constipation. Patient reports no incontinence. No difficulty urinating. No hematuria. No increased frequency. Patient reports no muscle aches. No weakness, no arthralgias, no back pain. No swelling of the extremities. Patient reports no abnormal mole, no jaundice, no rashes. Reports no loss of consciousness. No weakness and no numbness. No seizures, dizziness, or headaches. The patient reports no depression, no sleep disturbance, feeling safe in a relationship and no alcohol abuse. Patient reports on fatigue. Reports no runny nose or sinus pressure. No itching, no hives, and no frequent sneezing. PHYSICAL EXAMINATION: GENERAL APPEARANCE: Well-nourished, well-developed, appears stated age. Level of distress, comfortable. PSYCHIATRIC: Mental status, alert, normal affect. Orientation, oriented to time, place and person. EYES: Lids and conjunctiva, noninjected. No discharge, no pallor. ENT: Lips, teeth, gums, normal dentition. Oropharynx, no cyanosis, no pallor. NECK: Carotid arteries, bilateral normal upstroke, no bruits, no thrills. JUGULAR VEINS: No jugular venous pressure or distention. CERVICAL LYMPH NODES: Nontender, nonenlarged. THYROID: Not enlarged. Nontender. No nodules. LUNGS: Respiratory effort, unlabored. CHEST: Normal curvature. No thoracic deformity. No chest wall tenderness. Percussion, resonant. Auscultation, clear. No wheezes, no rales, no rhonchi. CARDIOVASCULAR: Precordial exam, nondisplaced. No heaves or pericardial thrills. Rate and rhythm, regular. Heart sounds, normal S1, normal S2. No S3, no gallop, no rub. Systolic murmur, not heard. Diastolic murmur, not heard. EXTREMITIES: No cyanosis, no edema. Peripheral pulses, full and equal in all extremities, except as noted. No bruits appreciated. ABDOMEN: Soft, nondistended. Normal aorta. No bruit. Nontender. No masses. HISTORY AND PHYSICAL [id number] JUAN YEE Liver, nontender, no hepatomegaly. Spleen, nontender, no splenomegaly. MUSCULOSKELETAL: No joint tenderness. No joint swelling. No erythema. NEUROLOGICAL: Normal gait, normal strength, normal tone. SKIN: Warm and dry. OVERALL IMPRESSION: Chest pain and chest discomfort, compatible with angina in recurrent fashion with abnormal nuclear stress test. Past history of coronary artery disease. We will proceed with coronary angiography. Further care depends on findings of the angiography. TRANSINT:[id number] Voice Confirmation ID: [id number] DOCUMENT ID: [id number] GABRIELA DAILEY MD at 1214 CC: [id number] DICTATION DATE: 10/18/17 1034 HOSPITAL PHARMACY TECHNICIAN: 10/18/17 1106 DEP CLI 10/19/17 [place] [id number] [place] [id number]
--- NOTE | 2017-11-02 12:14 | DS ---
PATIENT:JUAN YEE :43 MEDICAL RECORD: [id number] DISCHARGE SUMMARY ADMISSION DATE: 10/18/17 DISCHARGE DATE: 10/19/17 DISCHARGE DIAGNOSES: 1. Angina. 2. Coronary artery disease. 3. PTCA and stent of LAD, PTCA of left circumflex this admission. 4. Peripheral vascular disease. 5. POLISHER AND SANDER and stent of right iliac this admission. 6. Claudication. 7. Hypertension. 8. Hyperlipidemia. 9. Cardiomyopathy. HISTORY AND HOSPITAL COURSE: This is a gentleman, who presented with shortness of breath and anginal symptomatology. Found to have 2-vessel coronary artery disease as well as significant disease of the right iliac. Underwent POLISHER AND SANDER and stent of the right iliac, PTCA and stent of the LAD, PTCA of the left circumflex. Discharged home with the addition of aspirin and Plavix to his medical regimen. He will follow up with [facility] in 1 month. TRANSINT:[id number] Voice Confirmation ID: [id number] DOCUMENT ID: [id number] GABRIELA DAILEY MD at 1214 CC: [id number] DICTATION DATE: 10/19/17 0844 SWAGING MACHINE OPERATOR: 10/19/17 1111 DEP CLI 10/19/17 [place] [id number] [place] [address]
--- NOTE | 2017-11-02 12:17 | OP ---
PATIENT NAME: JUAN YEE MEDICAL RECORD: [id number] :43 LOCATION:D.CAT ADMISSION DATE: SURGEON: GABRIELA DAILEY MD DATE OF OPERATION: 10/18/2017 PROCEDURES: 1. PTCA stent LAD. 2. Left heart catheterization. 3. Selective coronary angiography. 4. Left ventriculogram. 5. Intravascular ultrasound. INDICATION: Angina and coronary artery disease. PROCEDURE IN DETAIL: After informed consent was obtained and after detailed explanation of risks, benefits as well as alternative therapies, the patient elected to proceed with angiogram and angioplasty. The right radial area was prepped and draped in normal sterile fashion. Right radial artery was cannulated via modified Seldinger technique with placement of 6-[place] sheath. All catheters exchanged through this sheath. FINDINGS: The left ventriculogram was performed in standard 30-degree WHITTEN view reveals global hypokinesis throughout all segments. Overall ejection fraction is 30%. SELECTIVE CORONARY ANGIOGRAPHY: 1. Left main showed no significant angiographic disease. 2. Left anterior descending has greater than 70% stenosis proximally confirmed by intravascular ultrasound. 3. Left circumflex has 90% stenosis, then it is 100% occluded. The 90% stenosis does lead into a first obtuse marginal, this most likely can be approached via transcatheter approach. 4. Right coronary is small, nondominant with no significant disease. PTCA STENT OF THE LAD: The stent used is a 3.5 x 26 mm [place]. Result was 0% residual stenosis. OVERALL IMPRESSION: Successful percutaneous transluminal coronary angioplasty stent of the left anterior descending going from greater than 70% initial stenosis to 0% residual. PLAN: PTCA stent of the left circumflex first obtuse marginal in the near future. TRANSINT:[id number] Voice Confirmation ID: [id number] DOCUMENT ID: [id number] GABRIELA DAILEY MD at 1217 CC: [id number] DICTATION DATE: 10/18/17 1134 DIAL REFINISHER: 10/18/17 1249 DEP CLI 10/19/[address] [address]
--- NOTE | 2017-11-02 12:17 | OP ---
PATIENT NAME: JUAN YEE MEDICAL RECORD: [id number] :43 LOCATION:D.CAT ADMISSION DATE: SURGEON: GABRIELA DAILEY MD DATE OF OPERATION: 10/19/2017 PROCEDURES: 1. PTCA left circumflex. 2. Selective coronary angiography. INDICATION: Angina and coronary artery disease. PROCEDURE IN DETAIL: After informed consent was obtained and after detailed explanation of risks, benefits as well as alternative therapies, the patient elected to proceed with angiogram and angioplasty. The right femoral area had a preexisting sheath from peripheral intervention. All catheters were exchanged through this sheath. FINDINGS: The left circumflex has a 90% stenosis. It is a relatively small vessel leading into a first obtuse marginal. We ballooned this with a 1.5 and 2.0 balloon. Due to the acute angulation and heavy calcification, no stent would traverse this. Result was 0% residual stenosis. OVERALL IMPRESSION: Successful PTCA of the circumflex going from 90% initial stenosis to 0% residual stenosis. TRANSINT:[id number] Voice Confirmation ID: [id number] DOCUMENT ID: [id number] GABRIELA DAILEY MD at 1217 CC: [id number] DICTATION DATE: 10/19/17 0845 CARPET FLOOR LAYER APPRENTICE: 10/19/17 1342 [facility] CLI 10/19/17 [place] [id number] [place] [address]
--- NOTE | 2017-11-02 12:17 | OP ---
PATIENT NAME: JUAN YEE MEDICAL RECORD: [id number] :43 LOCATION:D.CAT ADMISSION DATE: SURGEON: GABRIELA DAILEY MD DATE OF OPERATION: 10/19/2017 DATE OF SERVICE: 10/19/2017 PROCEDURES: 1. Stent placement, right iliac. 2. RADIATION CONTROL HEALTH PHYSICIST, right iliac. 3. Aortofemoral runoff. 4. Abdominal aortography. INDICATION: Claudication, peripheral vascular disease, inability to gain access for coronary intervention due to right iliac disease. PROCEDURE IN DETAIL: After informed consent was obtained and after detailed explanation of risks, benefits as well as alternative therapies, the patient elected to proceed with angiogram and angioplasty. The right femoral area was prepped and draped in normal sterile fashion. The right femoral artery was cannulated via modified Seldinger technique with placement of 6-Malian sheath. All catheters exchanged through this sheath. FINDINGS: The abdominal aortography was performed. The catheter was pulled down for aortofemoral runoff. Abdominal aortography reveals no significant abdominal aortic disease, no renal artery stenosis. RIGHT LEG: A. The common iliac is overall devoid of disease. The external iliac has an 80+ percent heavily calcified stenosis. B. Femoral system: The common and deep femoral are widely patent. Superficial femoral has ldlvoqlg-xv-xglzxw irregularities throughout the distal vessel. C. Popliteal and infrapopliteal vessels: The popliteal is patent and infrapopliteal vessels appear to be chronically totally occluded and severely diffusely diseased. LEFT LEG: A. Iliac: The common internal and external iliacs have moderate irregularities, but no discrete flow-limiting stenosis. B. Femoral system: The common and deep femoral are widely patent. Superficial femoral has multiple areas of seohfrlv-yq-fvmwnu disease throughout the distal vessel. C. Popliteal and infrapopliteal vessels: The popliteal is patent. Infrapopliteal vessels, however, are not patent. There is severe diffuse disease throughout. RADIATION CONTROL HEALTH PHYSICIST STENT OF THE RIGHT ILIAC: We ballooned the right iliac and stented with a 7 x 27 Cordis Azeb stent. Result was 0% residual stenosis. OVERALL IMPRESSION: Successful RADIATION CONTROL HEALTH PHYSICIST stent of the right iliac going from 80+ percent initial stenosis to 0% residual stenosis. TRANSINT:[id number] Voice Confirmation ID: [id number] DOCUMENT ID: [id number] OPERATIVE REPORT [id number] JUAN YEE GABRIELA DAILEY MD at 1217 CC: [id number] DICTATION DATE: 10/19/17 0848 BOOK REPAIRER: 10/19/17 1300 DEP CLI 10/19/17 [address] [id number] [place] [address]
== END 2017-10-19 15:20 | disposition home or self-care (01) ==
LOC: D.M2 07:51 → D.CATH 07:51 → D.M2 11:42 → D.CATH 10-19 15:20
PROVIDERS: Internal Medicine Interventional Cardiology
DX: I25.119 Atherosclerotic heart disease of native coronary artery with unspecified angina pectoris (principal); I10 Essential (primary) hypertension; E78.5 Hyperlipidemia, unspecified; Z95.5 Presence of coronary angioplasty implant and graft; I70.211 Atherosclerosis of native arteries of extremities with intermittent claudication, right leg; I42.9 Cardiomyopathy, unspecified; Z01.812 Encounter for preprocedural laboratory examination
CPT/HCPCS: 92978; 93458; 37221; 92920; C9600

== ENCOUNTER 2018-04-07 09:37 | Outpatient (CLI) | payer MEDICARE, BC ==
[~2018-04-07] VITALS: Ht 182.9 cm; Wt 68.6 kg
[2018-04-07] VITALS (17 sets, daily range): BP systolic 88–105; BP diastolic 41–73; Ht 182.9 cm; Wt 68.6 kg
--- NOTE | ~2018-04-07 | HEMODYNAMI ---
PATIENT:JUAN YEE MEDICAL RECORD: [id number] : 43 LOCATION:D.CAT ADMISSION DATE: 04/07/18 Generatedon:04/07/201811:58 Patient name: JUAN YEE Patient #: [id number] SSN: : 1945 Date of study: 04/07/2018 Page: Of Hemodynamic Procedure Report Patient Data Patient Demographics Procedure consent was obtained First Name: JUAN Gender: Male Last Name: NAKIA : 1945 Middle Initial: KAMALJIT Age: 72 year(s) Patient #: [id number] Race: Unknown Additional ID: [id number] Contact details Address: [address] [place] [address] DRIVE State: [place] City: [place] Zip code: [address] Past Medical History Allergies: No known allergies Admission Admission Data Admission Date: 04/07/2018 Admission Time: 9:37 Procedure Procedure Types Cath Procedure Diagnostic Procedure C LHC w/Coronaries Procedure Description Procedure Date Procedure Date: 04/07/2018 Procedure Start Time: 11:35 Procedure End Time: 11:51 Procedure Staff Name Function Kaushal Mccoy MD Performing Physician Aundrea Canales RT Monitor Suzi Arriaga RT Scrub Moody Boykin RN Nurse Procedure Data Cath Procedure Fluoroscopy Diagnostic fluoroscopy Total fluoroscopy Time: 4.5 time: 4.5 min min Diagnostic fluoroscopy Total fluoroscopy dose: 749 dose: 749 mGy mGy Contrast Material Contrast Material Type Amount (ml) Isovue 300 84 Entry Location Entry Primary Successful Side Size Upsize Upsize Entry Closure Succes sful Closure Location (Fr) 1 (Fr) 2 (Fr) Remarks Device Remarks Femoral Right 6 Fr Exoseal artery Short Estimated blood loss: 10 ml Diagnostic catheters Device Type Used For End Catheter Placement MULTIPACK Pigtail 5 Fr Procedure catheter MULTIPACK JL 4.0 5Fr Procedure catheter MULTIPACK 3DRC 5Fr Procedure catheter Procedure Complications No complications Procedure Medications Medication Administration Route Dosage Oxygen NC 2 l/min Lidocaine 2% added to field 20 Heparin Flush Bag added to field 2 bags (1000units/500ml NS) 0.9% NaCl I.V. 100 ml/hr Heparin Bolus I.V. 4000 units Versed I.V. 1 mg Versed I.V. 1 mg Fentanyl I.V. 50 mcg Fentanyl I.V. 50 mcg Hemodynamics Rest Heart Rate: 57 (bpm) Snapshots Pre Cath Intra NCS Post Cath Vital Signs Time Heart Resp SPO2 etCO2 NIBP Rhythm Pain Sedation Rate (ipm) (%) (mmHg) (mmHg) Status Level (bpm) 11:24:30 55 16 100 0 106/62(85) NSR 0 (11) 10(A) , No pain 11:28:33 60 14 99 0 104/62(88) NSR 0 (11) 10(A) , No pain 11:32:35 59 15 96 0 107/66(91) NSR 0 (11) 10(A) , No pain 11:36:39 60 16 95 0 112/63(96) NSR 0 (11) 10(A) , No pain 11:40:42 63 15 94 0 113/68(95) NSR 0 (11) 9(A) , No pain 11:44:50 61 15 98 0 108/60(88) NSR 0 (11) 9(A) , No pain 11:48:52 68 17 95 0 106/69(86) NSR 0 (11) 10(A) , No pain 11:54:05 66 18 93 0 100/70(82) NSR 0 (11) 10(A) , No pain Medications Time Medication Route Dose Verified Delivered Reason Notes Effectiveness by by 11:23:38 Oxygen NC 2 Kaushal Buffie used for l/min Darius Boykin RN procedure 11:23:44 Lidocaine 2% added 20ml Kaushal Kaushal for local to vial Darius Mccoy MD anesthetic field 11:23:51 Heparin Flush added 2 Kaushal Kaushal used for Bag to bags Darius Mccoy MD procedure (1000units/500ml field NS) 11:23:59 0.9% NaCl I.V. 100 Kaushal Buffie Per physician ml/hr Darius Boykin RN 11:36:57 Versed I.V. 1 mg Kaushal Bartonie for sedation Darius Boykin RN 11:36:59 Versed I.V. 1 mg Kaushal Buffie for sedation Darius Boykin RN 11:43:39 Heparin Bolus I.V. 4000 Kaushal Uriostegui for verifi ed units Darius Boykin RN anticoagulation with dr mccoy 11:47:06 Fentanyl I.V. 50 Kaushal Uriostegui for sedation mcg Darius Boykin RN 11:47:07 Fentanyl I.V. 50 Kaushal Uriostegui for sedation mcg Darius Boykin RN Procedure Log Time Note 10:46:44 Informed consent obtained and on chart 10:46:49 Diagnostic Cath Status : Elective 11:00:54 Moody Boykin RN sent for patient. Start room use. 11:00:55 Time tracking: Regular hours (M-F 7:00 - 5:00) 11:01:00 Plan of Care:Hemodynamics will remain stable., Cardiac rhythm will remain stable., Comfort level will be maintained., Respiratory function will remain adequate., Patient/ family verbilizes understanding of procedure., Procedure tolerated without complication., Recovers from procedure without complications.. 11:13:39 Patient received from ED to CCL 2 Alert and oriented. Tansferred to table in Supine position. 11:13:40 Warm blankets applied, and marino hugger turned on for patient comfort. 11:13:40 Correct patient and procedure confirmed by team. 11:13:41 ECG and BP/O2 sat monitors applied to patient. 11:23:26 Vital chart was started 11:23:38 Oxygen 2 l/min NC was administered by Moody Boykin RN; used for procedure; 11:23:44 Lidocaine 2% 20ml vial added to field was administered by Kaushal Mccoy MD; for local anesthetic; 11:23:51 Heparin Flush Bag (1000units/500ml NS) 2 bags added to field was administered by Kaushal Mccoy MD; used for procedure; 11:23:59 0.9% NaCl 100 ml/hr I.V. was administered by Moody Boykin RN; Per physician; 11:29:24 Baseline sample Acquired. 11:29:31 Rhythm: sinus rhythm 11:29:32 Full Disclosure recording started 11:29:37 H&P Date Dictated: 04/07/2018 Emergent; H&P N/A. 11:29:39 Pre-procedure instructions explained to patient. 11:29:40 Family in waiting room. 11:29:42 Patient NPO since Midnight. 11:31:46 Is the patient allergic to Iodine/contrast media? No. 11:31:48 Was the patient premedicated? Yes 11:31:56 Is patient on blood thinner?Yes 11:31:59 ACC The patient was administered the following blood thiners within the last 24 hours: ACCPlavix 11:32:15 Patient diabetic? No. 11:32:18 Snore? No 11:32:20 Sleep apnea? No 11:32:25 Airway obstruction? Yes COPD 11:32:31 Dentures? Yes Tight 11:32:40 IV patent on arrival in right forearm with 0.9% NaCl at [facility]. 11:32:45 Lab results completed and on chart. 11:32:48 Right groin area was prepped with chlora-prep and draped in sterile fashion 11:32:49 Alarms reviewed by R. N. 11:32:49 Sharps counted by scrub and verified by R.N. 11:32:50 Physician paged 11:32:50 Physician arrived 11:32:51 --------ALL STOP TIME OUT------ 11:32:52 Final Timeout: patient, procedure, and site verified with staff and physician. All members of the team are in agreement. 11:32:54 Right groin site verified by team. 11:32:58 Physical assessment completed. ASA score P 2 - A patient with mild systemic disease as per Kaushal Mccoy MD. 11:33:07 Sedation plan: IV Moderate Sedation Medication:Versed, Fentanyl 11:34:05 Use device set Femoral Dx 11:34:06 ACIST Syringe (28251) opened to sterile field. 11:34:06 Bag Decanter () opened to sterile field. 11:34:07 Medline Cath Pack ([id number]) opened to sterile field. 11:34:07 DIAGNOSTIC WIRE .035 260cm J wire (068659) opened to sterile field. 11:34:08 ACIST Hand Control (05857) opened to sterile field. 11:34:09 ACIST Manifold (44720) opened to sterile field. 11:34:09 DIAGNOSTIC Multipack 5Fr catheter set (GR0893) opened to sterile field. 11:34:10 Tegaderm 4 x 4 (1626W) opened to sterile field. 11:34:11 PERCUTANEOUS ENTRY 19GA needle opened to sterile field. 11:34:25 SHEATH 6Fr Prelude ([id number]) opened to sterile field. 11:34:30 Procedure started. 11:35:00 Local anesthetic to right femoral artery with Lidocaine 2% by Kaushal Mccoy MD.INITIAL ACCESS ONLY 11:35:12 A 6 Fr Short sheath was inserted into the Right Femoral artery 11:35:56 A MULTIPACK Pigtail 5 Fr catheter was advanced over the wire and used for Procedure. 11:36:00 LV angiography performed. 11:36:52 EF : 10 % 11:36:55 LV hemodynamics recorded. 11:36:57 Versed 1 mg I.V. was administered by Moody Boykin RN; for sedation; 11:36:59 Versed 1 mg I.V. was administered by Moody Boykin RN; for sedation; 11:37:45 Catheter removed. 11:38:10 A MULTIPACK JL 4.0 5Fr catheter was advanced over the wire and used for Procedure. 11:38:13 Catheter removed. 11:38:36 GUIDE 6FR JL 6.0 catheter (GS4BA42) opened to sterile field. 11:39:34 LCA angiography performed. 11:40:02 Catheter removed. 11:40:48 A MULTIPACK 3DRC 5Fr catheter was advanced over the wire and used for Procedure. 11:40:51 RCA angiography performed. 11:40:54 Catheter removed. 11:41:06 INFLATOR Merit BasixCompak (ZR7382) opened to sterile field. 11:41:07 CHOICE PT Extra Support 182cm wire ([id number]) opened to sterile field. 11:41:11 Proceeding to intervention. 11:41:20 Conway Wickes Eagleye IVUS Catheter (47634K) opened to sterile field. 11:42:33 GUIDE 6FR EBU 5.0 catheter ([id number]) opened to sterile field. 11:42:49 6 Fr EBU 5 guide catheter was inserted over the wire 11:43:03 choice pt ex wire advanced. 11:43:39 Heparin Bolus 4000 units I.V. was administered by Moody Boykin RN; for anticoagulation; verified with dr mccoy 11:44:32 IVUS catheter advanced over wire. 11:44:56 IVUS catheter removed over wire. 11:46:23 IVUS catheter advanced over wire. 11:46:34 IVUS catheter removed over wire. 11:47:06 Fentanyl 50 mcg I.V. was administered by Moody Boykin RN; for sedation; 11:47:07 Fentanyl 50 mcg I.V. was administered by Moody Boykin RN; for sedation; 11:47:47 Guide catheter removed. 11:48:13 Sheath removed intact; hemostasis achieved with Exoseal to the Right Femoral artery. 11:48:29 EXOSEAL 6Fr (EX600) opened to sterile field. 11:48:32 Procedure ended.(Physican Out) 11:49:19 Fluoroscopy time 04.50 minutes. 11:49:48 Fluoroscopy dose: 749 mGy 11:49:48 Flurop Dose total: 749 11:49:54 Contrast amount:Isovue 300 84ml. 11:49:56 Sharps counted by scrub and verified by R.N. 11:49:59 Insertion/operative site no bleeding no hematoma. 11:50:05 Post Procedure Pulses reassessed and unchanged 11:50:09 Post-procedure physical assessment completed. ASA score P 3 - A patient with severe systemic disease as per Kaushal Mccoy MD. 11:50:14 Post procedure rhythm: unchanged. 11:50:17 Estimated blood loss: 10 ml 11:50:19 Post procedure instruction explained to patient.Patient verbalizes understanding. 11:50:26 Patient needs reinforcement of post procedure teaching. 11:50:53 Procedure and supply charges have been captured, reviewed, submitted and are correct. 11:51:08 Procedure Complication : No complications 11:51:11 Vital chart was stopped 11:51:11 See physician's report for complete and final results. 11:51:13 Report given to Pre/Post Procedure Room. 11:51:18 Patient transfered to Pre/Post Procedure Room with Stretcher. 11:51:20 Procedure ended. 11:51:20 Full Disclosure recording stopped 11:51:25 End room use (Document Last) 11:54:32 The EUPHORA 3.5 x 15 Balloon ([id number]) was advanced and then removed because it was opened but not used Intervention Summary Intervention Notes Time ActionType Lesion and Equipment Action# Pressure Duration Attributes Used 11:54:32 Discard EUPHORA Balloon 3.5 x 15 Balloon ([id number]) Device Usage Item Name Manufacture Quantity Catalog Number Hospital Part Current Mini mal Lot# / Charge Number Stock Stock Serial# Code ACIST Acist 1 23180 955814 245372 070915 20 Syringe Medical (19167) Systems Inc Bag Decanter Microtek 1 040602 65821 075154 5 () Medical Inc. Medline Cath Cardinal 1 [id number] 524238 52272 713228 5 Pack Health ([id number]) DIAGNOSTIC St Solitario 1 282740 474316 157462 031704 30 WIRE .035 260cm J wire (605090) ACIST Hand Acist 1 94010 439697 009622 690480 5 Control Medical (73265) Systems Inc ACIST Acist 1 71608 768437 965406 782510 5 Manifold Medical (55510) Systems Inc DIAGNOSTIC Cardinal 1 VL9099 905474 20882 276776 30 MultipStepping [facility] 5Fr catheter set (CM0360) Tegaderm 4 x 3M 1 1626W 380061 587732 975570 5 4 (1626W) PERCUTANEOUS Cook Medical 1 T23151 000597 028789 5 ENTRY 19GA needle SHEATH 6Fr Merit 1 [id number] 396174 662256 496466 5 Prelude Medical ([id number]) MULTIPACK Cardinal 1 137261 5 Pigtail 5 Fr Health catheter MULTIPACK JL Cardinal 1 441999 5 4.0 5Fr Rainbow catheter GUIDE 6FR JL Medtronic 1 [id number] 000040 93450 141626 0 6.0 catheter (CG1IF66) MULTIPACK Cardinal 1 558199 5 3DRC 5Fr Health catheter INFLATOR Merit 1 SL6801 000998 735303 430666 15 [facility] BasixCompak (NW4639) CHOICE PT [place] 1 [id number] 593418 457784 261713 5 Extra Scientific Support 182cm wire ([id number]) Conway Conway 1 61985X 707395 635993 090622 8 Wickes Eagleye IVUS Catheter (64826K) GUIDE 6FR Medtronic 1 [id number] 201606 42698 583942 0 EBU 5.0 catheter ([id number]) EXOSEAL 6Fr Cardinal 1 EX600 632316 215617 631471 10 (EX600) Health EUPHORA 3.5 Medtronic 1 [id number] 618433 996061 008660 5 [id number] x 15 Balloon ([id number]) Signature Audit [place] Stage Time Signature Unsigned Intra-Procedure 04/07/2018 Aundrea Canales 11:58:41 AM RT(R) Signatures Monitor : Aundrea Canales Signature : RT Date : Time : [place] [id number] [place] [id number]
--- NOTE | ~2018-04-07 | HEMODYNAMI ---
PATIENT:JUAN YEE MEDICAL RECORD: [id number] : 43 LOCATION:[place] [address] ADMISSION DATE: 04/07/18 Generatedon:04/08/20188:53 Patient name: JUAN YEE Patient #: [id number] SSN: : 1945 Date of study: 04/08/2018 Page: Of Hemodynamic Procedure Report Patient Data Patient Demographics Procedure consent was obtained First Name: JUAN Gender: Male Last Name: NAKIA : 1945 Middle Initial: KAMALJIT Age: 72 year(s) Patient #: [id number] Race: Unknown Additional ID: [id number] Contact details [address]: [address] [place] [address] DRIVE State: [place] City: [place] Zip code: [address] Past Medical History Allergies: No known allergies Admission Admission Data Admission Date: 04/07/2018 Admission Time: 9:37 Admit Source: Emergency department Room #: [facility] Procedure Procedure Types Cath Procedure Diagnostic Procedure PPM/ICD Internal Cardiac Defib Dual Sedation Charges Moderate Sedation up to 30 minutes Procedure Description Procedure Date Procedure Date: 04/08/2018 Procedure Start Time: 8:18 Procedure End Time: 8:48 Procedure Staff Name Function Moody Boykin RN Nurse Juliocesar Houser RT Monitor Aundrea Canales RT Scrub Gage Rojas MD Performing Physician Procedure Data Cath Procedure Fluoroscopy Diagnostic fluoroscopy Total fluoroscopy Time: 3.8 time: 3.8 min min Diagnostic fluoroscopy Total fluoroscopy dose: dose: 85.77 mGy 85.77 mGy Estimated blood loss: 5 ml Procedure Complications No complications Procedure Medications Medication Administration Route Dosage Ancef (1Gm/50ml NS) I.V.P.B 1 g Ancef Irrigation Topical 1 g (1gm/500ml NS) Versed I.V. 2 mg Fentanyl I.V. 50 mcg Lidocaine 1% added to field 20 0.9% NaCl I.V. Hemodynamics Rest Heart Rate: 53 (bpm) Snapshots Pre Cath Intra NCS Post Cath Vital Signs Time Heart Resp SPO2 etCO2 NIBP (mmHg) Rhythm Pain Sedation Rate (ipm) (%) (mmHg) Status Level (bpm) 8:18:13 60 15 94 0 124/64(108) NSR 0 (11) 10(A) , No pain 8:22:35 58 13 93 0 126/66(101) NSR 0 (11) 10(A) , No pain 8:26:53 56 16 94 0 126/61(104) NSR 0 (11) 10(A) , No pain 8:31:09 56 15 92 0 124/62(101) NSR 0 (11) 10(A) , No pain 8:13:38 62 16 95 0 120/63(101) NSR 0 (11) 10(A) , No pain 8:38:52 56 16 96 0 123/67(103) NSR 0 (11) 10(A) , No pain 8:43:08 58 19 98 0 127/63(110) NSR 0 (11) 10(A) , No pain 8:47:24 53 14 99 0 126/66(107) NSR 0 (11) 10(A) , No pain Medications Time Medication Route Dose Verified Delivered Reason Notes Effective ness by by 8:01:14 Ancef I.V.P.B 1 g Gage Buffie used for (1Gm/50ml Crystal Boykin windshield repair technician NS) 8:08:20 Ancef Topical 1 g Gage Buffie used for Irrigation Crystal Boykin windshield repair technician (1gm/500ml NS) 8:08:58 Lidocaine added 20ml Gage Gage for local 1% to vial Crystal Rojas MD anesthetic field x 2 8:09:15 0.9% NaCl I.V. kvo Gage Buffie Per ml/hr Crystal Boykin RN physician 8:16:52 Versed I.V. 2 mg Gage Buffie for Crystal Boykin RN sedation 8:18:58 Fentanyl I.V. 50 Gage Buffie for mcg Crystal Boykin RN sedation Procedure Log Time Note 7:29:37 Informed consent obtained and on chart 7:29:42 Admit Source: Emergency department 7:30:12 Time tracking: Regular hours (M-F 7:00 - 5:00) 7:30:15 Plan of Care:Hemodynamics will remain stable., Cardiac rhythm will remain stable., Comfort level will be maintained., Respiratory function will remain adequate., Patient/ family verbilizes understanding of procedure., Procedure tolerated without complication., Recovers from procedure without complications.. 7:30:28 H&P Date Dictated: 04/07/2018 Within 30 days and on chart.. 7:31:25 Lab Result : Hemoglobin 15.4 g/dl 7:31:25 Lab Result : Hematocrit 44.2 % 7:31:25 Lab Result : BUN 14 mg/dl 7:31: Lab Result : Creatinine 1.4 mg/dl 7:38:52 Moody Boykin RN sent for patient. Start room use. 7:46:56 Patient received from CVICU to CCL 3 Alert and oriented. Tansferred to table in Supine position. 7:46:57 Warm blankets applied, and marino hugger turned on for patient comfort. 7:46:58 ECG and BP/O2 sat monitors applied to patient. 7:46:58 Correct patient and procedure confirmed by team. 7:47:00 Pre-op teaching completed and patient verbalized understanding. 7:47:00 Pre-procedure instructions explained to patient. 7:47:02 Family in waiting room. 7:47:03 Patient NPO since Midnight. 7:47:14 Patient allergic to No known allergies 8:01:14 Ancef (1Gm/50ml NS) 1 g I.V.P.B was administered by Moody Boykin RN; used for procedure; 8:05:38 Is the patient allergic to Iodine/contrast media? No. 8:05:43 Is patient on blood thinner?Yes 8:05:45 ACC The patient was administered the following blood thiners within the last 24 hours: ACCPlavix 8:05:46 Patient diabetic? No. 8:05:48 Previous problem with sedation/anesthesia? No ? 8:05:50 Snore? No 8:05:51 Deviated septum? No 8:05:51 Sleep apnea? No 8:05:52 Opens mouth fully? Yes 8:05:53 Sticks out tongue? Yes 8:05:58 Airway obstruction? Yes COPD 8:06:04 Dentures? 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 8:06:20 Vital chart was started 8:06:22 Baseline sample Acquired. 8:06:25 Rhythm: sinus rhythm 8:06:28 Full Disclosure recording started 8:06:42 IV patent on arrival in right forearm, left antecubital with 0.9% NaCl at KVO. 8:06:44 Lab results completed and on chart. 8:06:53 Left chest area was prepped with chlora-prep and draped in sterile fashion 8:06:55 Alarms reviewed by RPatrick N. 8:07:00 Use device set NORRED PPM 8:07:02 Tegaderm 4 x 4 (1626W) opened to sterile field. 8:07:03 Stapler Skin 35W Proximate Plus (PMW35) opened to sterile field. 8:07:04 Cautery Tip Cat Driver opened to sterile field. 8:07:05 Cautery Pushbutton Pencil opened to sterile field. 8:07:06 Immobilizer Large opened to sterile field. 8:07:07 2-0 Silk 685H opened to sterile field. 8:07:08 2-0 Vicryl Plus [id number] opened to sterile field. 8:07:24 Pre sharps counted by scrub and verified by RN: Sutures: 3; Sponges: 5; Stick needles: 2; Skin needles: 2; Blade: 1; Cautery: 1 8:07:39 Grounding pad site Right thigh. 8:07:40 Grounding pad site free from injury. 8:08:20 Ancef Irrigation (1gm/500ml NS) 1 g Topical was administered by Moody Boykin RN; used for procedure; 8:08:58 Lidocaine 1% 20ml vial x 2 added to field was administered by Gage Rojas MD; for local anesthetic; 8:09:15 0.9% NaCl kvo ml/hr I.V. was administered by Moody Boykin RN; Per physician; 8:10:21 MICROPUNCTURE 4FR Gerard ([id number]) opened to sterile field. 8:10:46 Physician arrived 8:10:47 Final Timeout: patient, procedure, and site verified with staff and physician. All members of the team are in agreement. 8:10:47 --------ALL STOP TIME OUT------ 8:10:51 Left chest site verified by team. 8:10:53 Physical assessment completed. ASA score P 3 - A patient with severe systemic disease as per Gage Rojas MD. 8:10:56 Sedation plan: IV Moderate Sedation Medication:Versed, Fentanyl 8:12:50 Visia AF MRI VR SureScan opened to sterile field. 8:15:34 6947M-62 cm opened to sterile field. 8:16:52 Versed 2 mg I.V. was administered by Moody Boykin RN; for sedation; 8:17:56 Procedure started. 8:18:00 Lidocaine 1% was administered to left subclavicular area by Gage Rojas MD . 8:18:58 Fentanyl 50 mcg I.V. was administered by Moody Boykin RN; for sedation; 8:20:08 Incision made to left subclavicular area. 8:20:35 Generator pocket made/opened. 8:27:33 Access obtained with 4Fr micropunture. 8:31:48 Left subclavian vein accessed with 9Fr Peel Away Sheath. 8:32:20 Ventricular lead inserted and advanced. 8:33:14 Peel-a-way sheath was split and removed. 8:33:58 Ventricular lead positioned. 8:35:47 Ventricular lead tested. 8:37:32 Ventricular lead attachment was completed with 2-0 silk. 8:37:39 AICD was attached to lead(s) and inserted into pocket. 8:40:12 Subcutaneous closure was completed with 2-0 vicryl. 8:43:41 Skin closure was completed with 35mm Liberty. 8:44:11 Parameters-- Generator: Mode: VVI. Lower Rate: 40bpm. Upper Rate: ?bpm. 8:44:30 Parameters--Ventricular P/R Wave: 14.1mV. Current: 0.2mA; Threshold: 0.2V; Impedence: 555OHMS. 8:44:33 Lt Chest incision was dressed with gauze eyepad and tegaderm. 8:46:21 Procedure ended.(Physican Out) 8:47:08 Fluoroscopy time 03.80 minutes. 8:47:13 Fluoroscopy dose: 85.77 mGy 8:47:13 Flurop Dose total: 85.77 8:47:51 Contrast amount: Visipaque 320 20ml. 8:47:58 Sharps counted by scrub and verified by R.N. 8:47:59 Insertion/operative site no bleeding no hematoma. 8:48:11 Post left subclavian vein:stable, soft, clean and dry 8:48:12 Post Procedure Pulses reassessed and unchanged 8:48:14 Post-procedure physical assessment completed. ASA score P 3 - A patient with severe systemic disease as per Gage Rojas MD. 8:48:17 Post procedure rhythm: unchanged. 8:48:19 Estimated blood loss: 5 ml 8:48:21 Patient needs reinforcement of post procedure teaching. 8:48:21 Post procedure instruction explained to patient.Patient verbalizes understanding. 8:48:37 Procedure type changed to Cath procedure, Diagnostic procedure, PPM/ICD, Internal Cardiac Defib Dual, Sedation Charges, Moderate Sedation up to 30 minutes 8:48:38 Procedure and supply charges have been captured, reviewed, submitted and are correct. 8:48:40 Procedure Complication : No complications 8:48:48 Vital chart was stopped 8:48:49 See physician's report for complete and final results. 8:48:50 Report given to CVICU. 8:48:53 Patient transfered to CVICU with Stretcher. 8:48:55 Full Disclosure recording stopped 8:48:55 Procedure ended. 8:49:01 End room use (Document Last) Device Usage Item Name Manufacture Quantity Catalog Hospital Part Current Minimal Lot# / Serial# Number Charge Number Stock Stock Code Tegaderm 4 x 3M 1 1626W [id number] 5 4 (1626W) Stapler Skin Unknown 1 PMW35 [id number] [id number] 5 35W Proximate Plus (PMW35) Cautery Tip Microtek 1 [id number] [id number] [id number] 067208 5 [employer] Cautery Microtek 1 [id number] [id number] 89166 [id number] 5 [employer] Pencil Immobilizer Cardinal 1 [id number] [id number] 821471 5 Large Health 2-0 Silk 685H Ethicon 1 685H [id number] 85229 132353 5 2-0 Vicryl Ethicon 1 [id number] 064369 939652 632481 5 Plus [id number] MICROPUNCTURE [facility] 1 [id number] [id number] [id number] 517646 5 4FR [employer] ([id number]) Visia AF MRI Unknown 1 0 0 EXP: VR David 2019-05-19 SN:[id number] 6947M-62 cm Unknown 1 0 0 [id number] sn:[id number] Signature Audit [place] Stage Time Signature Unsigned Intra-Procedure 04/08/2018 Juliocesar Houser RT(R) 8:49:57 AM RT(R) 04/08/2018 8:53:19 AM Intra-Procedure 04/08/2018 Juliocesar Houser 8:53:46 AM RT(R) Signatures Monitor : Juliocesar Houser RT Signature : Date : Time : [address] [address]
--- NOTE | ~2018-04-07 | OP ---
PATIENT NAME: JUAN YEE MEDICAL RECORD: [id number] :43 LOCATION:D[facility] ADMISSION DATE: SURGEON: GABRIELA DAILEY MD DATE OF OPERATION: 04/07/2018 PROCEDURES: 1. Left heart catheterization. 2. Selective coronary angiography. 3. Left ventriculogram. INDICATION: Angina and coronary artery disease. PROCEDURE IN DETAIL: After informed consent was obtained and after a detailed description of risks, benefits as well as alternative therapies, the patient elected to proceed with angiogram and heart catheterization. The right femoral area was prepped and draped in normal sterile fashion. Right femoral artery was cannulated via modified Seldinger technique with placement of 6-Montserratian sheath. All catheters exchanged through this sheath. FINDINGS: The left ventriculogram was performed in standard 30-degree WHITTEN view, reveals global hypokinesis throughout all segments. Overall ejection fraction 10% to 15%. SELECTIVE CORONARY ANGIOGRAPHY: 1. Left main is with no significant angiographic disease. There is a questionable haziness in the left main; however, intravascular ultrasound reveals no significant stenosis. 2. Left anterior descending has moderate irregularities, but no flow-limiting stenosis. Previously placed stents are widely patent with no significant restenosis. 3. Ramus intermedius is widely patent. 4. Left circumflex is chronically totally occluded. This is unchanged from previous angiography. 5. Right coronary artery is small, nondominant, no significant disease. OVERALL IMPRESSION: Severe cardiomyopathy, no new coronary artery disease is present. Proceed with ICD placement. TRANSINT:[id number] Voice Confirmation ID: [id number] DOCUMENT ID: [id number] GABRIELA DAILEY MD at 1445 CC: [id number] DICTATION DATE: 04/07/18 1152 FINISHER ACCORDION: 04/07/18 1504 DEP CLI 04/08/18 [facility] [address] [place] [id number]
[~2018-04-07 09:37] MED LIST: BAYER CHEWABLE81 MG PO; COREG 3.1253.125 MG PO; GEMFIBROZIL600 MG PO; LIPITOR20 MG PO; LOVAZA1 G PO; MUCINEX600 MG PO; PLAVIX75 MG PO
[2018-04-07 09:59] LABS: BASOPHILS 0.4 % (0-2); EOSINOPHILS 0.9 % (0-7); HEMATOCRIT 44.2 % (42.0-54.0); HEMOGLOBIN 15.4 g/dL (13.5-17.5); IMMATURE GRANULOCYTES 0.2 % (0-5); LYMPHOCYTES 24.5 % (15-50); MCH 33.7 pg (26.0-34.0); MCHC 34.8 g/dL (31.0-37.0); MCV 96.7 fL (80.0-100.0); MEAN PLATELET VOLUME 10.4 fL (7.4-10.4); MONOCYTES 8.9 % (2-11); NEUTROPHILS 65.1 % (40-80); PLATELET COUNT 167 10x3/uL (130-400); RBC 4.57 10x6/uL (4.20-6.10); WBC 10.7 10x3/uL (4.8-10.8)
[2018-04-07 10:10] LABS: APTT 27.7 SECONDS (22.8-39.4); INR 1.09 (0.85-1.17); PROTIME 13.7 SECONDS (11.6-15.0)
[2018-04-07 10:13] LABS: ALBUMIN 3.9 g/dL (3.4-5.0); CALC OSMOLALITY 282 mosm/kg (275-300); CALCIUM 8.9 mg/dL (8.5-10.1); CARBON DIOXIDE 23.5 mmol/L (21.0-32.0); CHLORIDE - SERUM 103 mmol/L (98-107); CREATININE - SERUM 1.4 mg/dL (0.6-1.3); MAGNESIUM - SERUM 1.7 mg/dL (1.8-2.4); POTASSIUM - SERUM 3.9 mmol/L (3.5-5.1); SODIUM 139 mmol/L (136-145); UREA NITROGEN 14 mg/dL (7-18); eGFR NON AFRICAN AMERICAN 53 mL/min (90-120)
[2018-04-07 10:22] LABS: GLUCOSE 167 mg/dL (74-106)
[2018-04-07 11:07] LABS: ALKALINE PHOSPHATASE 67 U/L (46-116); ALT (SGPT) 18 U/L (10-68); CHOL - HDL RATIO 4.8 ratio (2.3-4.9); CHOLESTEROL, TOTAL 139 mg/dL (0-200); CKMB 2.3 U/L (0.0-3.6); CREATINE KINASE 160 UL (21-232); HDL CHOLESTEROL 29 mg/dL (32-96); LDL CHOLESTEROL 89 mg/dL (0-100); LDL-HDL RATIO 3.1 ratio (1.5-3.5); PROTEIN - SERUM 6.6 g/dL (6.4-8.2); TRIGLYCERIDE 109 mg/dL (30-200)
[2018-04-08] VITALS (20 sets, daily range): BP systolic 85–122; BP diastolic 37–74
[2018-04-08] MEDS ORDERED: PACERONE200 MG PO (08:55)
[2018-04-08] MEDS ORDERED: LISINOPRIL5 MG PO (08:56)
[2018-04-08] MEDS ORDERED: KEFLEX500 MG PO (08:56)
== END 2018-04-08 18:45 ==
LOC: D.CVICU 09:37 → D.ER 09:37 → D.CATH 09:37 → EDSTATUS 11:00 → D.CVICU 12:30 → D.CATH 04-08 18:45
PROVIDERS: Emergency Medicine
DX: I47.2 Ventricular tachycardia (principal); I25.5 Ischemic cardiomyopathy; I25.10 Atherosclerotic heart disease of native coronary artery without angina pectoris; I11.9 Hypertensive heart disease without heart failure; Z95.5 Presence of coronary angioplasty implant and graft; Z01.812 Encounter for preprocedural laboratory examination; Z79.82 Long term (current) use of aspirin; Z79.02 Long term (current) use of antithrombotics/antiplatelets; Z79.899 Other long term (current) drug therapy; Z82.49 Family history of ischemic heart disease and other diseases of the circulatory system

== ENCOUNTER 2018-04-08 23:58 | Emergency (ER) | payer MEDICARE, BC ==
[2018-04-07 16:08] VITALS: BMI 20.4
[~2018-04-08 23:58] MED LIST changes: +KEFLEX500 MG PO; +LISINOPRIL5 MG PO; +PACERONE200 MG PO
[2018-04-09 01:03] LABS: BASOPHILS 0.2 % (0-2); EOSINOPHILS 0.4 % (0-7); HEMATOCRIT 45.1 % (42.0-54.0); HEMOGLOBIN 15.3 g/dL (13.5-17.5); IMMATURE GRANULOCYTES 0.2 % (0-5); MCHC 33.9 g/dL (31.0-37.0); MCV 97.4 fL (80.0-100.0); MEAN PLATELET VOLUME 10.6 fL (7.4-10.4); MONOCYTES 10.4 % (2-11); NEUTROPHILS 76.8 % (40-80); PLATELET COUNT 134 10x3/uL (130-400); RBC 4.63 10x6/uL (4.20-6.10); RDW 11.9 % (11.5-14.5); WBC 11.6 10x3/uL (4.8-10.8)
[2018-04-09 01:38] LABS: ALBUMIN 3.9 g/dL (3.4-5.0); ALKALINE PHOSPHATASE 71 U/L (46-116); CALCIUM 9.2 mg/dL (8.5-10.1); CARBON DIOXIDE 27.4 mmol/L (21.0-32.0); CHLORIDE - SERUM 105 mmol/L (98-107); CREATININE - SERUM 1.3 mg/dL (0.6-1.3); PROTEIN - SERUM 6.7 g/dL (6.4-8.2); SODIUM 140 mmol/L (136-145); UREA NITROGEN 17 mg/dL (7-18); eGFR NON AFRICAN AMERICAN 57 mL/min (90-120)
[2018-04-09 01:39] LABS: CALC OSMOLALITY 281 mosm/kg (275-300); GLUCOSE 108 mg/dL (74-106); POTASSIUM - SERUM 4.7 mmol/L (3.5-5.1)
[2018-04-09 01:40] LABS: ALT (SGPT) 23 U/L (10-68)
[2018-04-09 01:52] LABS: CHOL - HDL RATIO 5.2 ratio (2.3-4.9); CHOLESTEROL, TOTAL 151 mg/dL (0-200); HDL CHOLESTEROL 29 mg/dL (32-96); LDL CHOLESTEROL 98 mg/dL (0-100); LDL-HDL RATIO 3.4 ratio (1.5-3.5); PRO BNP 2685 pg/mL (0-125); TRIGLYCERIDE 121 mg/dL (30-200)
[2018-04-09 01:56] LABS: CREATINE KINASE 243 UL (21-232)
[2018-04-09 01:57] LABS: TROPONIN-I 1.309 ng/mL (0.000-0.060)
== END 2018-04-09 03:01 | disposition home or self-care (01) ==
LOC: D.ER 23:58
PROVIDERS: Family Medicine
DX: R07.9 Chest pain, unspecified (principal); I10 Essential (primary) hypertension; R00.1 Bradycardia, unspecified; I45.10 Unspecified right bundle-branch block

== ENCOUNTER 2018-05-01 16:24 | Inpatient (IN) | payer MEDICARE, BC ==
[~2018-05-01] VITALS: Ht 182.9 cm; Wt 72.6 kg
[2018-05-01] VITALS (17 sets, daily range): BP systolic 77–119; BP diastolic 42–81; BMI 21.4
[2018-05-01 17:00] LABS: BASOPHILS 0.4 % (0-2); EOSINOPHILS 0.5 % (0-7); HEMATOCRIT 42.1 % (42.0-54.0); HEMOGLOBIN 14.3 g/dL (13.5-17.5); IMMATURE GRANULOCYTES 0.2 % (0-5); LYMPHOCYTES 17.8 % (15-50); MCH 33.8 pg (26.0-34.0); MCV 99.5 fL (80.0-100.0); MEAN PLATELET VOLUME 10.3 fL (7.4-10.4); MONOCYTES 10.8 % (2-11); NEUTROPHILS 70.3 % (40-80); PLATELET COUNT 156 10x3/uL (130-400); RBC 4.23 10x6/uL (4.20-6.10); RDW 12.1 % (11.5-14.5); WBC 10.9 10x3/uL (4.8-10.8)
[2018-05-01 17:17] LABS: ALBUMIN 3.3 g/dL (3.4-5.0); ANION GAP 14.5 mmol/L (8-16); BILIRUBIN - TOTAL 0.65 mg/dL (0.2-1.3); CALCIUM 8.5 mg/dL (8.5-10.1); CARBON DIOXIDE 26.6 mmol/L (21.0-32.0); CREATININE - SERUM 1.6 mg/dL (0.6-1.3); POTASSIUM - SERUM 5.1 mmol/L (3.5-5.1); PROTEIN - SERUM 6.1 g/dL (6.4-8.2)
[2018-05-01 17:31] LABS: MAGNESIUM - SERUM 1.9 mg/dL (1.8-2.4)
[2018-05-01 17:32] LABS: TROPONIN-I 0.147 ng/mL (0.000-0.060)
[2018-05-02] VITALS (28 sets, daily range): BP systolic 95–136; BP diastolic 45–69; Ht 182.9 cm; Wt 72.6 kg
[2018-05-02 00:02] LABS: CREATINE KINASE 141 UL (21-232)
[2018-05-02 00:04] LABS: TROPONIN-I 1.425 ng/mL (0.000-0.060)
[2018-05-02 06:16] LABS: BASOPHILS 0.5 % (0-2); EOSINOPHILS 0.8 % (0-7); HEMATOCRIT 39.3 % (42.0-54.0); HEMOGLOBIN 13.2 g/dL (13.5-17.5); IMMATURE GRANULOCYTES 0.1 % (0-5); LYMPHOCYTES 24.5 % (15-50); MCHC 33.6 g/dL (31.0-37.0); MCV 98.3 fL (80.0-100.0); MEAN PLATELET VOLUME 10.4 fL (7.4-10.4); MONOCYTES 11.7 % (2-11); NEUTROPHILS 62.4 % (40-80); PLATELET COUNT 123 10x3/uL (130-400); WBC 7.8 10x3/uL (4.8-10.8)
[2018-05-02 07:21] LABS: ALBUMIN 2.9 g/dL (3.4-5.0); ALKALINE PHOSPHATASE 56 U/L (46-116); ALT (SGPT) 25 U/L (10-68); BILIRUBIN - TOTAL 0.39 mg/dL (0.2-1.3); CALC OSMOLALITY 279 mosm/kg (275-300); CALCIUM 8.4 mg/dL (8.5-10.1); CHLORIDE - SERUM 107 mmol/L (98-107); CKMB 11.2 U/L (0.0-3.6); CREATINE KINASE 105 UL (21-232); CREATININE - SERUM 1.3 mg/dL (0.6-1.3); GLUCOSE 88 mg/dL (74-106); POTASSIUM - SERUM 4.8 mmol/L (3.5-5.1); PROTEIN - SERUM 5.4 g/dL (6.4-8.2); SODIUM 140 mmol/L (136-145); UREA NITROGEN 19 mg/dL (7-18); eGFR NON AFRICAN AMERICAN 57 mL/min (90-120)
[2018-05-02 07:27] LABS: TROPONIN-I 2.625 ng/mL (0.000-0.060)
[2018-05-03] VITALS (10 sets, daily range): BP systolic 125–152; BP diastolic 54–68
[2018-05-03] MEDS ORDERED: PACERONE200 MG PO (08:58)
== END 2018-05-03 09:50 | disposition home or self-care (01) | DRG 310 ==
LOC: D.ER 16:24 → D.CVICU 19:15 → D.EDHOLD 19:15 → D.CVICU 19:51
PROVIDERS: Family Medicine
DX: I47.2 Ventricular tachycardia (principal); I25.5 Ischemic cardiomyopathy; I10 Essential (primary) hypertension; I25.10 Atherosclerotic heart disease of native coronary artery without angina pectoris; Z95.810 Presence of automatic (implantable) cardiac defibrillator

== ENCOUNTER 2018-05-29 21:49 | Emergency (ER) | payer MEDICARE, BC ==
[~2018-05-29] VITALS: Ht 182.9 cm; Wt 67.3 kg
[2018-05-29 21:51] VITALS: Ht 182.9 cm; Wt 67.3 kg
[2018-05-29 22:59] LABS: BASOPHILS 0.5 % (0-2); HEMATOCRIT 39.9 % (42.0-54.0); HEMOGLOBIN 13.5 g/dL (13.5-17.5); IMMATURE GRANULOCYTES 0.1 % (0-5); LYMPHOCYTES 20.5 % (15-50); MCH 33.2 pg (26.0-34.0); MCHC 33.8 g/dL (31.0-37.0); MEAN PLATELET VOLUME 10.1 fL (7.4-10.4); MONOCYTES 11.9 % (2-11); PLATELET COUNT 129 10x3/uL (130-400); RBC 4.07 10x6/uL (4.20-6.10); RDW 12.1 % (11.5-14.5)
[2018-05-29 23:05] LABS: INR 1.09 (0.85-1.17); PROTIME 13.7 SECONDS (11.6-15.0)
[2018-05-29 23:07] LABS: D-DIMER-QUANTITATIVE 3.17 ug/mLFEU (0.20-0.54)
[2018-05-29 23:13] LABS: ALBUMIN 3.6 g/dL (3.4-5.0); ALKALINE PHOSPHATASE 52 U/L (46-116); ALT (SGPT) 12 U/L (10-68); BILIRUBIN - TOTAL 0.57 mg/dL (0.2-1.3); CALC OSMOLALITY 285 mosm/kg (275-300); CALCIUM 8.6 mg/dL (8.5-10.1); CARBON DIOXIDE 30.3 mmol/L (21.0-32.0); CHLORIDE - SERUM 106 mmol/L (98-107); CREATININE - SERUM 1.6 mg/dL (0.6-1.3); GLUCOSE 91 mg/dL (74-106); POTASSIUM - SERUM 4.5 mmol/L (3.5-5.1); PROTEIN - SERUM 6.3 g/dL (6.4-8.2); SODIUM 143 mmol/L (136-145); UREA NITROGEN 16 mg/dL (7-18); eGFR NON AFRICAN AMERICAN 45 mL/min (90-120)
[2018-05-29 23:27] LABS: CKMB 1.7 U/L (0.0-3.6); CREATINE KINASE 77 UL (21-232); PRO BNP 1554 pg/mL (0-125)
[2018-05-29 23:29] LABS: TROPONIN-I 0.016 ng/mL (0.000-0.060)
[2018-05-30 02:51] VITALS: BP 123/74
== END 2018-05-30 02:52 | disposition home or self-care (01) ==
LOC: D.ER 21:49
PROVIDERS: Emergency Medicine
DX: R07.89 Other chest pain (principal); I10 Essential (primary) hypertension; F17.200 Nicotine dependence, unspecified, uncomplicated; R00.1 Bradycardia, unspecified

== ENCOUNTER 2018-11-18 11:15 | Outpatient (CLI) | payer MEDICARE, BC ==
[~2018-11-18] VITALS: Ht 182.9 cm; Wt 65.3 kg
--- NOTE | ~2018-11-18 | HEMODYNAMI ---
PATIENT:JUAN YEE MEDICAL RECORD: [id number] : 43 LOCATION:[address] ADMISSION DATE: 11/18/18 Generatedon:11/18/201816:08 Patient name: JUAN YEE Patient #: [id number] SSN: : 1945 Date of study: 11/18/2018 Page: Of Hemodynamic Procedure Report Patient Data Patient Demographics Procedure consent was obtained First Name: JUAN Gender: Male Last Name: NAKIA : 1945 [facility] Initial: KAMALJIT Age: 73 year(s) Patient #: [id number] Race: Unknown Additional ID: [id number] Contact details Address: [address] [place] [address] DRIVE State: [place] City: [place] Zip code: [address] Past Medical History Allergies: No known allergies Admission Admission Data Admission Date: 11/18/2018 Admission Time: 11:15 Room #: 2122 Height (in.): 71.74 BSA: 1.85 (m2) Height (cm.): 182.22 BMI: 19.85 (kg/m2) Weight (lbs.): 145.29 Weight (kg.): 65.9 Lab Results Lab Result Date: 11/18/2018 Lab Result Time: 0:00 Biochemistry Name Units Result Min Max BUN mg/dl 29 --(----)-* 7 18 Creatinine mg/dl 1.9 --(----)-* 0.6 1.3 CBC Name Units Result Min Max Hemoglobin g/dl 13.5 --(*---)-- 13.5 17.5 Procedure Procedure Types Cath Procedure Diagnostic Procedure [facility] w/Coronaries Sedation Charges Moderate Sedation up to 15 minutes PCI Procedure PTCA PTCA Initial Procedure Description Procedure Date Procedure Date: 11/18/2018 Procedure Start Time: 15:41 Procedure End Time: 16:07 Procedure Staff Name Function Kaushal Mccoy MD Performing Physician Carolyne Camargo RT Monitor Asad Bravo RT Scrub Prachi Pierre RN Nurse Procedure Data Cath Procedure Fluoroscopy Diagnostic fluoroscopy Total fluoroscopy Time: 7.8 time: 7.8 min min Diagnostic fluoroscopy Total fluoroscopy dose: dose: 1001 mGy 1001 mGy Contrast Material Contrast Material Type Amount (ml) Isovue 300 156 Entry Location Entry Primary Successful Side Size Upsize Upsize Entry Closure Irving ccessful Closure Location (Fr) 1 (Fr) 2 (Fr) Remarks Device Remarks Radial Right 6 Fr Mechanical artery Short Compression Estimated blood loss: 10 ml Diagnostic catheters Device Type Used For End Catheter Placement DIAGNOSTIC Phelps 110cm 5 Procedure Fr catheter ([id number]) Procedure Complications No complications Procedure Medications Medication Administration Route Dosage 0.9% NaCl I.V. 100 ml/hr Oxygen etCO2 Nasal cannula 2 l/min Lidocaine 2% added to field 20 Heparin Flush Bag added to field 2 bags (1000units/500ml NS) Radial Cocktail added to field 1 syringe (Verapomil 2mg/Nitro 400mcg/Heparin 1500units) Versed I.V. 2 mg Fentanyl I.V. 50 mcg Versed I.V. 1 mg Fentanyl I.V. 25 mcg Heparin Bolus I.V. 4000 units Hemodynamics Rest BSA: 1.85 (m2) HGB: 13.5 (g/dl) O2 Consumption: Estimated: 203.64 (ml/min) O2 Co nsumption indexed: Estimated:110.08 (ml/min/m) Heart Rate: 57 (bpm) Snapshots Pre Cath Intra NCS Post Cath Vital Signs Time Heart Resp SPO2 etCO2 NIBP (mmHg) Rhythm Pain Sedation Rate (ipm) (%) (mmHg) Status Level (bpm) 15:17:20 60 22 97 11 154/81(129) NSR 0 (11) 10(A) , No pain 15:21:42 57 10 96 18 146/74(118) NSR 0 (11) 10(A) , No pain 15:26:02 55 10 95 19.5 139/71(110) NSR 0 (11) 10(A) , No pain 15:30:22 58 13 96 26.3 139/70(111) NSR 0 (11) 10(A) , No pain 15:34:42 58 14 95 32 131/62(98) NSR 0 (11) 10(A) , No pain 15:38:58 60 13 97 28.5 139/65(108) NSR 0 (11) 10(A) , No pain 15:43:13 62 10 97 29.2 128/67(103) NSR 0 (11) 10(A) , No pain 15:47:31 65 10 96 19.5 113/59(91) NSR 0 (11) 9(A) , No pain 15:51:44 67 10 96 26.3 116/55(97) NSR 0 (11) 9(A) , No pain 15:55:54 65 10 95 22.5 108/55(87) NSR 0 (11) 9(A) , No pain 16:00:04 66 10 95 23.3 118/64(94) NSR 0 (11) 9(A) , No pain 16:04:18 64 10 96 21 114/62(92) NSR 0 (11) 10(A) , No pain Medications Time Medication Route Dose Verified Delivered Reason Not es Effectiveness by by 15:22:30 0.9% NaCl I.V. 100 Kaushal Prachi used for ml/hr Darius Pierre research anthropologist 15:22:36 Oxygen etCO2 2 l/min Kaushal Prachi used for Nasal Darius Pierre procedure cannula RN 15:22:43 Lidocaine 2% added 20ml Kaushal Kaushal for local to vial Darius Mccoy MD anesthetic field 15:22:48 Heparin Flush added 2 bags Kaushal Kaushal used for Bag to Darius Mccoy MD procedure (1000units/500ml field NS) 15:22:58 Radial Cocktail added 1 Kaushal Kaushal used for (Verapomil to syringe Darius Mccoy MD procedure 2mg/Nitro field 400mcg/Heparin 1500units) 15:39:00 Versed I.V. 2 mg Kaushal Prachi for sedation Darius Pierre RN 15:39:05 Fentanyl I.V. 50 mcg Kaushal Prachi for sedation Darius Pierre RN 15:43:42 Versed I.V. 1 mg Kaushal Prachi for sedation Darius Pierre RN 15:43:46 Fentanyl I.V. 25 mcg Kaushal Prachi for sedation Darius Pierre RN 15:48:17 Heparin Bolus I.V. 4000 Kaushal Prachi for abiodun ified units Darius Pierre anticoagulation with Dr. VIOLETA Mccoy Procedure Log Time Note 15:00:58 Asad Bravo RT(R) sent for patient. Start room use. 15::59 Diagnostic Cath status Elective 15:08:01 Signed procedure consent form obtained from patient. 15:08:02 Time tracking: Regular hours (M-F 7:00 - 5:00) 15:08:05 Plan of Care:Hemodynamics will remain stable., Cardiac rhythm will remain stable., Comfort level will be maintained., Respiratory function will remain adequate., Patient/ family verbilizes understanding of procedure., Procedure tolerated without complication., Recovers from procedure without complications.. 15:08:57 H&P Date Dictated: 11/18/2018 New H&P dictated by physician.. 15:09:20 Patient allergic to No known allergies 15:09:39 Lab Result : BUN 29 mg/dl 15::39 Lab Result : Creatinine 1.9 mg/dl 15:09:39 Lab Result : Hemoglobin 13.5 g/dl 15::59 Patient Height : 71.74 inches 15:10:04 Patient Weight : 145.29 lbs 15:15:49 ECG and BP/O2 sat monitors applied to patient. 15:16:08 Vital chart was started 15:22:30 0.9% NaCl 100 ml/hr I.V. was administered by Prachi Pierre RN; used for procedure; 15:22:36 Oxygen 2 l/min etCO2 Nasal cannula was administered by Prachi Pierre RN; used for procedure; 15:22:43 Lidocaine 2% 20ml vial added to field was administered by Kaushal Mccoy MD; for local anesthetic; 15:22:48 Heparin Flush Bag (1000units/500ml NS) 2 bags added to field was administered by Kaushal Mccoy MD; used for procedure; 15:22:58 Radial Cocktail (Verapomil 2mg/Nitro 400mcg/Heparin 1500units) 1 syringe added to field was administered by Kaushal Mccoy MD; used for procedure; 15:24:51 Baseline sample Acquired. 15:24:55 Rhythm: sinus bradycardia 15:24:56 Full Disclosure recording started 15:24:56 Pre-procedure instructions explained to patient. 15:24:58 Pre-op teaching completed and patient verbalized understanding. 15:25:00 Family in patients room. 15:25:03 Patient NPO since Midnight. 15:25:06 Is the patient allergic to Iodine/contrast media? No. 15:25:07 Is patient on blood thinner?Yes 15:25:10 ACC The patient was administered the following blood thiners within the last 24 hours: ACCPlavix 15:25:15 Patient diabetic? No. 15:25:21 Previous problem with sedation/anesthesia? No ? 15:25:24 Snore? No 15:25:25 Sleep apnea? No 15:25:31 Deviated septum? No 15:25:34 Opens mouth fully? Yes 15:25:42 Sticks out tongue? Yes 15:25:47 Airway obstruction? Yes COPD 15:26:02 Dentures? Yes OUT 15:26:06 Modified Abel's test Ulnar < 7 seconds 15:26:08 Patient pain scale 0/10 ?. 15:26:13 IV patent on arrival in left forearm with 0.9% NaCl at [facility]. 15:26:14 Lab results completed and on chart. 15:26:16 Right Radial & Right Groin area was prepped with chlora-prep and draped in sterile fashion 15:26:17 Alarms reviewed by Fernando Fernandez 15:26:28 Use device set Radial Dx or PCI 15:26:29 ACIST Syringe (39360) opened to sterile field. 15:26:30 ACIST Hand Control (09422) opened to sterile field. 15:26:31 ACIST Manifold (44222) opened to sterile field. 15:26:31 Tegaderm 4 x 4 (1626W) opened to sterile field. 15:26:33 Bag Decanter (2002S) opened to sterile field. 15:26:35 Medline Cath Pack ([id number]) opened to sterile field. 15:26:36 DIAGNOSTIC WIRE .035 260cm J wire (367605) opened to sterile field. 15:26:37 SHEATH 6FR Slender (72-6111) opened to sterile field. 15:30:21 Zero performed for pressure channel P1 15:30:27 Zero performed for pressure channel P1 15:30:31 Zero performed for pressure channel P1 15:38:35 --------ALL STOP TIME OUT------ 15:38:35 Final Timeout: patient, procedure, and site verified with staff and physician. All members of the team are in agreement. 15:38:37 Right Radial & Right Groin site verified by team. 15:38:40 Physical assessment completed. ASA score P 2 - A patient with mild systemic disease as per Kaushal Mccoy MD. 15:38:42 Sedation plan: IV Moderate Sedation Medication:Versed, Fentanyl 15:39:00 Versed 2 mg I.V. was administered by Prachi Pierre RN; for sedation; 15:39:05 Fentanyl 50 mcg I.V. was administered by Prachi Pierre RN; for sedation; 15:41:39 Procedure started. 15:41:50 Local anesthetic to right radial artery with Lidocaine 2% by Kaushal Mccoy MD.INITIAL ACCESS ONLY 15:42:49 A 6 Fr Short sheath was inserted into the Right Radial artery 15:43:30 A DIAGNOSTIC Phelps 110cm 5 Fr catheter (874456) was advanced over the wire and used for Procedure. 15:43:41 LV gram done using WHITTEN 15:43:42 Versed 1 mg I.V. was administered by Prachi Pierre RN; for sedation; 15:43:46 Fentanyl 25 mcg I.V. was administered by Prachi Pierre RN; for sedation; 15:43:55 Injector settings: Ml/sec: 7, Volume: 15, 15:44:14 EF : 20 % 15:46:06 LCA angiography performed. 15:46:49 RCA angiography performed. 15:46:51 Catheter exchanged over wire. 15:47:39 CHOICE PT Extra Support 182cm wire ([id number]) opened to sterile field. 15:47:40 INFLATOR Merit BasixCompak (DZ9180) opened to sterile field. 15:48:06 GUIDE 6FR XBLAD 3.5 catheter ([id number]) opened to sterile field. 15:48:17 Heparin Bolus 4000 units I.V. was administered by Prachi Pierre RN; for anticoagulation; verified with Dr. Mccoy 15:48:18 6 Fr XBLAD 3.5 guide catheter was inserted over the wire 15:48:58 CHOICE ES 182 wire advanced. 15:50:22 Wire advanced across lesion. 15:51:44 The VON RX 2.5 x 18 stent ([id number]) was advanced then removed because of failure to cross lesion 15:53:11 Inflate balloon Inflation number: 1 A EUPHORA 2.5 x 15 Balloon ([id number]) was prepped and advanced across the 1st Diag, then inflated to 17 RAMA for 0:10 (min:sec). 15:53:39 Inflation number: 2 The EUPHORA 2.5 x 15 Balloon ([id number]) was reinflated across the 1st Diag, to 13 RAMA for 0:10 (min:sec). 15:53:42 Balloon removed over the wire. 15:55:49 The VON RX 2.5 x 18 stent ([id number]) was advanced then removed because of failure to cross lesion 15:57:13 Inflation number: 3 The EUPHORA 2.5 x 15 Balloon ([id number]) was reinflated across the 1st Diag, to 21 RAMA for 0:00 (min:sec). 15:57:33 Inflation number: 4 The EUPHORA 2.5 x 15 Balloon ([id number]) was reinflated across the 1st Diag, to 17 RAMA for 0:00 (min:sec). 15:57:51 Balloon removed over the wire. 15:59:24 The VON RX 2.5 x 18 stent ([id number]) was advanced then removed because of failure to cross lesion 16:00:29 Wire removed. 16:00:30 Guide catheter removed. 16:00:35 TR BAND Standard ([id number]) opened to sterile field. 16:01:12 Procedure ended.(Physican Out) 16:04:00 Sheath removed intact; hemostasis achieved with Mechanical Compression to the Right Radial artery. 16:04:17 Fluoroscopy time 07.80 minutes. 16:04:20 Flurop Dose total: 1001 16:04:20 Fluoroscopy dose: 1001 mGy 16:04:26 Contrast amount:Isovue 300 156ml. 16:04:28 Sharps counted by scrub and verified by R.N. 16:04:31 TR band inflated with 10cc of air. 16:04:35 Post-procedure physical assessment completed. ASA score P 2 - A patient with mild systemic disease as per Kaushal Mccoy MD. 16:04:47 Post procedure rhythm: sinus rhythm 16:04:49 Estimated blood loss: 10 ml 16:04:51 Post procedure instruction explained to patient.Patient verbalizes understanding. 16:04:51 Patient needs reinforcement of post procedure teaching. 16:05:12 Procedure type changed to Cath procedure, Diagnostic procedure, LHC, LHC w/Coronaries, Sedation Charges, Moderate Sedation up to 15 minutes, PCI procedure, PTCA, PTCA Initial 16:07:21 Procedure and supply charges have been captured, reviewed, submitted and are correct. 16:07:23 Procedure Complication : No complications 16:07:25 Vital chart was stopped 16:07:25 See physician's report for complete and final results. 16:07:28 Report given to PCU. 16:07:30 Patient transfered to PCU with Bed. 16:07:31 Procedure ended. 16:07:31 Full Disclosure recording stopped 16:07:34 End room use (Document Last) Intervention Summary Intervention Notes Time ActionType Lesion and Equipment Used Action# Pressure Duration Attributes 15:51:44 Discard VON RX 2.5 x Stent 18 stent ([id number]) 15:53:11 Inflate 1st Diag EUPHORA 2.5 x 1 17 00:10 balloon 15 Balloon ([id number]) 15:53:39 Reinflate 1st Diag EUPHORA 2.5 x 2 13 00:10 balloon 15 Balloon ([id number]) 15:55:49 Discard VON RX 2.5 x Stent 18 stent ([id number]) 15:57:13 Reinflate 1st Diag EUPHORA 2.5 x 3 21 00:00 balloon 15 Balloon ([id number]) 15:57:33 Reinflate 1st Diag EUPHORA 2.5 x 4 17 00:00 balloon 15 Balloon ([id number]) 15:59:24 Discard VON RX 2.5 x Stent 18 stent ([id number]) Device Usage Item Name Manufacture Quantity Catalog Number Hospital Part Current M inimal Lot# / Charge Number Stock Stock Serial# Code ACIST Syringe Acist 1 08534 769630 842195 330718 2 0 (41267) Medical Systems Inc ACIST Hand Acist 1 58397 286143 083407 982283 5 Control Medical (98043) St. Vibes Inc ACIST Manifold Acist 1 65770 900078 642408 239760 5 (35920) [employer] Systems Inc Tegaderm 4 x 4 3M 1 1626W 956235 871340 306929 5 (1626W) Bag Decanter Microtek 1 2001S 340744 23143 285889 5 (2001S) Medical Inc. Medline Cath Medline 1 [id number] 020617 99017 458523 5 Pack ([id number]) DIAGNOSTIC St Solitario 1 353738 560419 005980 188601 3 0 WIRE .035 260cm J wire (067867) SHEATH 6FR Terumo 1 [id number] 732281 388325 093700 5 Slender (80-1060) DIAGNOSTIC Terumo 1 40-8323 700077 267905 848419 5 Phelps 110cm 5 Fr catheter (110209) CHOICE PT [place] 1 [id number] 257739 005804 596685 5 Extra Support Scientific 182cm wire ([id number]) INFLATOR Merit Merit 1 OC4152 838608 217482 434489 1 5 Nectar [employer] [facility] (MF9502) GUIDE 6FR Cardinal 1 [id number] 342497 192540 304246 1 0 XBLAD 3.5 Health catheter ([id number]) VON RX 2.5 x Medtronic 1 [id number] 649254 7052593 868271 5 [id number] 18 stent ([id number]) EUPHORA 2.5 x Medtronic 1 [id number] 569625 481617 958703 5 [id number] 15 Balloon ([id number]) TR BAND Terumo 1 [id number] 720739 247224 955215 4 0 Standard ([id number]) Signature Audit [place] Stage Time Signature Unsigned Intra-Procedure 11/18/2018 Carolyne Camargo 4:08:34 PM RT(R) Signatures Monitor : Carolyne Camargo Signature : RT Date : Time : [facility] [address] [place] [address]
[~2018-11-18 11:15] MED LIST changes: +FLOMAX0.4 MG PO; +MUCUS RELIEF400 MG PO
[2018-11-18 11:36] LABS: BASOPHILS 0.3 % (0-2); EOSINOPHILS 0.6 % (0-7); HEMOGLOBIN 13.5 g/dL (13.5-17.5); IMMATURE GRANULOCYTES 0.3 % (0-5); LYMPHOCYTES 21.4 % (15-50); MCH 33.7 pg (26.0-34.0); MCHC 34.6 g/dL (31.0-37.0); MCV 97.3 fL (80.0-100.0); MEAN PLATELET VOLUME 10.1 fL (7.4-10.4); MONOCYTES 11.9 % (2-11); NEUTROPHILS 65.5 % (40-80); RBC 4.01 10x6/uL (4.20-6.10); RDW 12.4 % (11.5-14.5); WBC 12.1 10x3/uL (4.8-10.8)
[2018-11-18 11:48] LABS: PLATELET COUNT 248 10x3/uL (130-400)
[2018-11-18 11:57] LABS: ALBUMIN 2.5 g/dL (3.4-5.0); ALKALINE PHOSPHATASE 80 U/L (46-116); ALT (SGPT) 11 U/L (10-68); BILIRUBIN - TOTAL 0.52 mg/dL (0.2-1.3); CALC OSMOLALITY 275 mosm/kg (275-300); CALCIUM 8.5 mg/dL (8.5-10.1); CARBON DIOXIDE 20.9 mmol/L (21.0-32.0); CHLORIDE - SERUM 100 mmol/L (98-107); CREATININE - SERUM 1.9 mg/dL (0.6-1.3); GLUCOSE 98 mg/dL (74-106); PROTEIN - SERUM 6.7 g/dL (6.4-8.2); SODIUM 135 mmol/L (136-145); UREA NITROGEN 29 mg/dL (7-18); eGFR NON AFRICAN AMERICAN 37 mL/min (90-120)
[2018-11-18 12:10] LABS: CKMB 1.8 U/L (0.0-3.6); CREATINE KINASE 111 UL (21-232); MAGNESIUM - SERUM 1.9 mg/dL (1.8-2.4); TROPONIN-I 0.019 ng/mL (0.000-0.060)
[2018-11-18 12:13] LABS: APTT 30.9 SECONDS (22.8-39.4); INR 1.12 (0.85-1.17); PROTIME 13.9 SECONDS (11.6-15.0)
--- NOTE | 2018-11-18 13:18 | NUR ---
TRANSFER FROM ER BY STRETCHER. OREINTED TO ROOM. CALL LIGHT IN REACH. WILL CONT. PLAN OF CARE.
--- NOTE | 2018-11-18 13:23 | NUR ---
RECIEVED PT FROM ER AT 1300
--- NOTE | 2018-11-18 13:37 | CN ---
PATIENT NAME:JUAN YEE MEDICAL RECORD: [id number] : 43 LOCATION:.[facility].2[address] ADMIT DATE: ACCOUNT: [id number] CONSULTING PHYSICIAN: GABRIELA DAILEY MD REFERRING PHYSICIAN: MONTEZ CAO MD DATE OF CONSULTATION: 11/18/2018 CARDIOLOGY CONSULTATION DIAGNOSES: 1. Unstable angina. 2. Coronary artery disease. 3. Previous percutaneous transluminal coronary angioplasty stent. 4. Sick sinus syndrome. 5. Status post pacemaker. 6. New-onset wide complex tachycardia. 7. Hyperlipidemia. 8. History of atrial fibrillation. HISTORY OF PRESENT ILLNESS: This is a gentleman who presents with an acute onset of chest pressure, diaphoresis, found to be with a heart rate of 151 and a wide complex tachycardia, most likely 2:1 flutter. He does have a history of atrial fibrillation and does have a pacemaker. He as well has history of coronary artery disease. Last cardiac stent a year ago. PHYSICAL EXAMINATION: GENERAL APPEARANCE: Well-nourished, well-developed, appears stated age. Level of distress, comfortable. PSYCHIATRIC: Mental status, alert, normal affect. Orientation, oriented to time, place and person. EYES: Lids and conjunctiva, noninjected. No discharge, no pallor. ENT: Lips, teeth, gums, normal dentition. Oropharynx, no cyanosis, no pallor. NECK: Carotid arteries, bilateral normal upstroke, no bruits, no thrills. JUGULAR VEINS: No jugular venous pressure or distention. CERVICAL LYMPH NODES: Nontender, nonenlarged. THYROID: Not enlarged. Nontender. No nodules. LUNGS: Respiratory effort, unlabored. CHEST: Normal curvature. No thoracic deformity. No chest wall tenderness. Percussion, resonant. Auscultation, clear. No wheezes, no rales, no rhonchi. CARDIOVASCULAR: Precordial exam, nondisplaced. No heaves or pericardial thrills. Rate and rhythm, regular. Heart sounds, normal S1, normal S2. No S3, no gallop, no rub. Systolic murmur, not heard. Diastolic murmur, not heard. EXTREMITIES: No cyanosis, no edema. Peripheral pulses, full and equal in all extremities, except as noted. No bruits appreciated. ABDOMEN: Soft, nondistended. Normal aorta. No bruit. Nontender. No masses. Liver, nontender, no hepatomegaly. Spleen, nontender, no splenomegaly. MUSCULOSKELETAL: No joint tenderness. No joint swelling. No erythema. NEUROLOGICAL: Normal gait, normal strength, normal tone. SKIN: Warm and dry. OVERALL IMPRESSION: Anginal symptomatology with acute dysrhythmia. We will plan for DC cardioversion. Further care depends upon the findings of the cardioversion. TRANSINT:[id number] Voice Confirmation ID: [id number] DOCUMENT ID: [id number] CONSULT REPORT [id number] JUAN YEE JEFFREY MD at 1337 CC: [id number] DICTATION DATE: 11/18/18 1132 SKEIN WINDING OPERATOR: 11/18/18 [address] [place] [id number] [place] [address]
[2018-11-18 13:51] VITALS: BP 112/65; Ht 182.9 cm; Wt 65.3 kg
[2018-11-18 15:55] VITALS: BP 127/69
--- NOTE | 2018-11-18 16:26 | NUR ---
PT BACK FROM S[facility] [employer]WORK ARCHITECT. LAD BALLOONED SEVERAL TIME. NO STINTS. RIGHT WRIST TR BAND. PT ASLEEP. CL IN REACH.
--- NOTE | 2018-11-18 17:46 | NUR ---
PT STILL SLEEPING. LARGE BRUISE AROUND CATH SITE, NOT ABNORMAL. NO BLEEDING. CL IN REACH, IS OUT OF THE ROOM, LEFT FOR THE NIGHT. PT AWAKES TO VERBAL STIMULI BUT IS CLEARLY SLEEPY.
--- NOTE | 2018-11-18 19:26 | NUR ---
REPORT RECEIVED. PT SITTING UP IN BED WITH EYES CLOSED, RR EVEN AND UNLABORED. BED IN LOW POSITION. NO S/S OF DISTRESS. SIDE RAILS UP X2. CALL LIGHT IN REACH. WILL CONTINUE TO MONITOR.
[2018-11-18 20:50] VITALS: BP 118/61
--- NOTE | 2018-11-18 22:25 | NUR ---
PT WATCHING TV. NO DISTRESS NOTED. CALL LIGHT WITHIN REACH.
--- NOTE | 2018-11-18 23:28 | NUR ---
RIGHT WRIST TR BAND REMOVED, NO S/S OF BLEEDING NOTED. 2 BY 2 GAUZE BANDAGE APPLIED. WILL CONTINUE TO MONITOR.
--- NOTE | 2018-11-19 00:33 | NUR ---
ASSISTED PT TO AMBULATE TO TOILET AND BACK TO BED, PT DENIES NEEDS AND COMPLAINTS OF PAIN. BED IN LOW POSITION. CALL LIGHT IN REACH. WILL CONTINUE TO MONITOR.
[2018-11-19 01:30] VITALS: BP 126/72
--- NOTE | 2018-11-19 03:05 | NUR ---
PT LYING FLAT IN BED WITH EYES CLOSED, RR EVEN AND UNLABORED. BED IN LOW POSITION. NO S/S OF DISTRESS. CALL LIGHT IN REACH. WILL CTM.
[2018-11-19 06:14] VITALS: BP 115/57
--- NOTE | 2018-11-19 06:24 | NUR ---
PT SITTING UP IN BED WITH EYES OPEN, RR EVEN AND UNLABORED. OXYGEN AT 6 LITERS BY NASAL CANNULA. BED IN LOW POSITION. SIDE RAILS UP X2. CALL LIGHT IN REACH. WILL CONTINUE TO MONITOR.
--- NOTE | 2018-11-19 07:32 | NUR ---
PT RESTING, DID NOT DISTURB AT THIS TIME. CL IN REACH.
[2018-11-19 08:21] VITALS: BP 117/56
--- NOTE | 2018-11-19 12:25 | NUR ---
PT D/C. CHECKED O2 ON ROOM AIR, PT WAS 95% ON RA. NO CONCERNS OR COMPLAINTS AT THIS TIME.
--- NOTE | 2018-11-19 12:26 | NUR ---
PULLING CAR AROUND
--- NOTE | 2018-11-21 14:36 | OP ---
PATIENT NAME: JUAN YEE MEDICAL RECORD: [id number] :43 LOCATION:D.CAT ADMISSION DATE: SURGEON: GABRIELA DAILEY MD DATE OF OPERATION: 11/18/2018 PROCEDURES: 1. PTCA, LAD diagonal. 2. Left heart catheterization. 3. Selective coronary angiography. 4. Left ventriculogram. INDICATION: Angina and coronary artery disease, ventricular tachycardia, cardiomyopathy. PROCEDURE IN DETAIL: After informed consent was obtained and after a detailed description of risks, benefits as well as alternative therapies, the patient elected to proceed with angiogram and angioplasty. The right femoral area was prepped and draped in normal sterile fashion. Right femoral artery was cannulated via modified Seldinger technique with the placement of 6-Bulgarian sheath. All catheters exchanged through this sheath. FINDINGS: Left ventriculogram was performed in standard 30-degree WHITTEN view, reveals global hypokinesis throughout all segments. Overall ejection fraction in the 20% range. SELECTIVE CORONARY ANGIOGRAPHY: 1. Left main is with no significant angiographic disease. 2. The left anterior descending has previously placed stents, these are widely patent. There is a diagonal that is very angulated calcified. It has 80% stenosis in the upper branch of the mid vessel dropdown. 3. Left circumflex is chronically totally occluded, it is unchanged from previous angiography. 4. Right coronary is small, nondominant with no significant disease. PTCA OF THE LAD DIAGONAL: We used a 2.5 balloon. We are able to get it through the area of angulation and calcification, no stent would cross this. We did blow up the balloon multiple times. There was 20% residual stenosis with no dissection. OVERALL IMPRESSION: Successful percutaneous transluminal coronary angioplasty of the left anterior descending diagonal going from 80% initial stenosis to 20% residual stenosis. TRANSINT:[id number] Voice Confirmation ID: [id number] DOCUMENT ID: [id number] GABRIELA DAILEY MD at 1436 CC: [id number] DICTATION DATE: 11/18/18 1606 DIRECTOR OF ARCHIVES: 11/19/18 0058 DEP CLI 11/19/18 [place] [address]
--- NOTE | 2018-11-21 14:36 | DS ---
PATIENT:JUAN YEE :[birth year] MEDICAL RECORD: [id number] DISCHARGE SUMMARY ADMISSION DATE: 11/18/18 DISCHARGE DATE: 11/19/18 DISCHARGE DIAGNOSES: 1. Ventricular tachycardia. 2. Cardiomyopathy. 3. Coronary artery disease. 4. Percutaneous transluminal coronary angioplasty, left anterior descending diagonal this admission. 5. Sick sinus syndrome, status post implantable cardioverter defibrillator pacemaker. 6. Hyperlipidemia. HISTORY OF PRESENT ILLNESS: This is a gentleman known to us with a past history of cardiomyopathy, past history of atrial fibrillation, and ventricular tachycardia, who presents with a slow ventricular tachycardia that was under the right of his ICD threshold. He underwent DC cardioversion. Cardiac catheterization revealed stenosis of a diagonal that took off in the stented area. This was ballooned. He had no further angina, no further dysrhythmias, discharged home with no change in his medication as he is already on aspirin, Plavix, and Pacerone. He will follow up with [facility] in 1 month as scheduled. TRANSINT:[id number] Voice Confirmation ID: [id number] DOCUMENT ID: [id number] GABRIELA DAILEY MD at 1436 CC: [id number] DICTATION DATE: 11/19/18 1038 SOLDERING TECHNICIAN: 11/20/18 0018 DEP CLI 11/19/18 [id number] [place] [address]
== END 2018-11-19 12:28 | disposition home or self-care (01) ==
LOC: D.CATH 11:15 → D.ER 11:15 → D.M2 11:15 → D.ER 12:34 → EDSTATUS 12:49 → D.CATH 13:15 → D.M2 13:16 → D.CATH 11-19 12:28
PROVIDERS: Emergency Medicine
DX: I25.119 Atherosclerotic heart disease of native coronary artery with unspecified angina pectoris (principal); I47.2 Ventricular tachycardia; I42.9 Cardiomyopathy, unspecified; Z95.0 Presence of cardiac pacemaker; E78.5 Hyperlipidemia, unspecified

== ENCOUNTER 2018-12-09 12:42 | Inpatient (IN) | payer MEDICARE, BC ==
[~2018-12-09] VITALS: Ht 182.9 cm; Wt 59.1 kg
--- NOTE | 2018-12-09 13:30 | NUR ---
BLANKETS PROVIDED AND LIGHTS DIMMED FOR COMFORT.
--- NOTE | 2018-12-09 13:50 | NUR ---
PER EDP, VERBAL ORDER RECIEVED TO NOT ADMINISTER ASA OR PRN NITRO AT THIS TIME.
[2018-12-09 13:51] LABS: BASOPHILS 0.5 % (0-2); EOSINOPHILS 0.6 % (0-7); HEMATOCRIT 42.9 % (42.0-54.0); HEMOGLOBIN 14.8 g/dL (13.5-17.5); IMMATURE GRANULOCYTES 0.3 % (0-5); LYMPHOCYTES 16.4 % (15-50); MCH 33.3 pg (26.0-34.0); MCHC 34.5 g/dL (31.0-37.0); MCV 96.4 fL (80.0-100.0); MEAN PLATELET VOLUME 10.3 fL (7.4-10.4); MONOCYTES 11.4 % (2-11); NEUTROPHILS 70.8 % (40-80); PLATELET COUNT 250 10x3/uL (130-400); RBC 4.45 10x6/uL (4.20-6.10); RDW 12.7 % (11.5-14.5); WBC 7.9 10x3/uL (4.8-10.8)
[2018-12-09 14:01] LABS: APTT 30.5 SECONDS (22.8-39.4); INR 1.16 (0.85-1.17); PROTIME 14.3 SECONDS (11.6-15.0)
[2018-12-09 14:06] LABS: ALBUMIN 2.6 g/dL (3.4-5.0); ALKALINE PHOSPHATASE 73 U/L (46-116); ALT (SGPT) 17 U/L (10-68); BILIRUBIN - TOTAL 0.51 mg/dL (0.2-1.3); CALC OSMOLALITY 271 mosm/kg (275-300); CALCIUM 8.8 mg/dL (8.5-10.1); CARBON DIOXIDE 27.1 mmol/L (21.0-32.0); CHLORIDE - SERUM 98 mmol/L (98-107); CREATININE - SERUM 2.2 mg/dL (0.6-1.3); GLUCOSE 97 mg/dL (74-106); POTASSIUM - SERUM 4.2 mmol/L (3.5-5.1); PROTEIN - SERUM 7.5 g/dL (6.4-8.2); SODIUM 134 mmol/L (136-145); UREA NITROGEN 25 mg/dL (7-18); eGFR NON AFRICAN AMERICAN 31 mL/min (90-120)
[2018-12-09 14:17] LABS: AMYLASE - SERUM 49 U/L (25-115); CKMB 2.2 U/L (0.0-3.6); CREATINE KINASE 68 UL (21-232); LIPASE 130 U/L (73-393); THYROID STIMULATING HORMONE 1.28 uIU/mL (0.36-3.74); TROPONIN-I 0.022 ng/mL (0.000-0.060)
[2018-12-09 15:00] VITALS: BP 85/46
--- NOTE | 2018-12-09 15:24 | NUR ---
ROOM 2103 ASSIGNED TO PT AT 1503, THIS NURSE ATTEMPTED TO CALL REPORT AT 1324. RECEIVING NURSE UNAVAILABLE AT THIS TIME. WILL ATTEMPT TO CALL REPORT AGAIN SHORTLY.
--- NOTE | 2018-12-09 15:29 | MORECARE ---
CASE MANAGEMENT DISCHARGE SUMMARY PATIENT: JUAN TREVINO UNIT: [id number] ADM DATE: 12/09/18 AGE: 73 : 43 SEX: M ROOM/BED: D.2103 AUTHOR: AUDREY PITT PHYSICIAN: REFERRING PHYSICIAN: AIDEN DUKES MD DATE OF SERVICE: 12/09/18 Discharge Plan Patient Name: [facility]UAN [facility]RE[facility]INO [facility] [facility] 1945 Planned Disposition: Home Anticipated Discharge Date: 12/12/18 Discharge Date: Expected LOS: 3 Initial Reviewer: [email or web address] Initial Review Date: 12/09/2018 Generated: 12/09/18 4:29 pm DCPIA - Discharge Planning Initial Assessment Updated by [email or web address]: Vesna Barragan on 12/09/18 3:28 pm * Is the patient Alert and Oriented? Yes * How many steps to enter\exit or inside your home? NOne * PCP Dr. Mcdaniel * Pharmacy [facility] * Preadmission Environment Home with Family * ADLs Independent * Equipment None * List name and contact numbers for known caregivers / representatives who currently or will assist patient after discharge: Александр Trevino - Son - [phone] Swetajoe Trevino - - [phone] * Verbal permission to speak to the caregivers and representatives has been obtained from the patient. Yes * Community resources currently utilized None * Additional services required to return to the preadmission environment? No * Can the patient safely return to the preadmission environment? Yes * Has this patient been hospitalized within the prior 30 days at any hospital? Yes Patient Name: JUAN TREVINO Page [phone] at 1529 All edits/amendments must be made on the electronic document DICTATION DATE: 12/09/18 152 [employer] TAMPING MACHINE OPERATOR: MARY 12/09/18 1529 RPT#: [id number] DC DATE: STATUS: ADM IN [facility] [address] [place] [address] END OF REPORT
--- NOTE | 2018-12-09 15:36 | MORECARE ---
CASE MANAGEMENT DISCHARGE SUMMARY PATIENT: JUAN TREVINO UNIT: [id number] ADM DATE: 12/09/18 AGE: 73 : 43 SEX: M ROOM/BED: D.2103 AUTHOR: YOANDY,DOC PHYSICIAN: REFERRING PHYSICIAN: AIDEN DUKES MD DATE OF SERVICE: 12/09/18 Discharge Plan Patient Name: JUAN TREVINO Facility: [facility]:[place] : 1945 Planned Disposition: Home Anticipated Discharge Date: 12/12/18 Discharge Date: Expected LOS: 3 Initial Reviewer: [email or web address] Initial Review Date: 12/09/2018 Generated: 12/09/18 4:36 pm DCP- Discharge Planning Updated by [email or web address]: Vesna Barragan on 12/09/18 2:[address] Patient Name: JUAN TREVINO Admission Status: ER Accout number: [id number] Admission Date: 12-09-2018 : 1945 Admission Diagnosis: Attending: AIDEN DUKES Current LOS: 1 Anticipated DC Date: 12-12-2018 Planned Disposition: Home Primary Insurance: MEDICARE A & B Discharge Planning Comments: CM met with patient, his , and his son to complete initial dc planning assessment. CM educated patient on the CM role and verbal consent given by patient to complete assessment. Patient lives at home with his in a two story home. He does not have to go upstairs. At discharge patient plans to return home with his and feels this is a safe discharge. CM discussed availability of home health, rehab services, and medical equipment. Patient denied known discharge needs at this time. CM will continue to follow and will assist as needed with dc plans/needs. Board Mill Supervisor: Vesna Barragan RN, [facility] DCPIA - Discharge Planning Initial Assessment Updated by [email or web address]: Vesna Barragan on 12/09/18 3:28 pm * Is the patient Alert and Oriented? Yes * How many steps to enter\exit or inside your home? NOne * PCP Dr. Mcdaniel * [facility]acy [facility] * Preadmission Environment Home with Family * ADLs Independent * Equipment None * List name and contact numbers for known caregivers / representatives who currently or will assist patient after discharge: Александр Trevino - Son - [phone] Sweta Trevino - - [phone] * Verbal permission to speak to the caregivers and representatives has been obtained from the patient. Yes * Community resources currently utilized None * Additional services required to return to the preadmission environment? No * Can the patient safely return to the preadmission environment? Yes * Has this patient been hospitalized within the prior 30 days at any hospital? Yes Last DP export: 12/09/18 2:29 p Patient Name: JUAN TREVINO Page 55612 at 1536 All edits/amendments must be made on the electronic document DICTATION DATE: 12/09/18 153 CHERRY PICKER OPERATOR: MARY 12/09/181535 RPT#: [id number] DC DATE: STATUS: ADM IN [facility] [address] [place] [address] END OF REPORT
--- NOTE | 2018-12-09 15:48 | NUR ---
THIS NURSE CALLED REPORT TO CHAYO, RECEIVING NURSE AT THIS TIME. PT'S ROOM 2103 IS CURRENTLY DIRTY. ED TO BE NOTIFIED WHEN ROOM IS CLEAN AND READY FOR PT. PT LEAVING THE ED VIA STRETCHER FOR ORDERED TEST. NO SIGNS OF DISTRESS NOTED WHEN LEAVING.
--- NOTE | 2018-12-09 16:14 | NUR ---
NOTIFIED BY NICOLE THAT PT'S LEVAQUIN COMPLETE AT 1610. NS BOLUS CONTINUES TO INFUSE. THIS NURSE WAS INFORMED THAT ROOM 2103 IS NOW READY FOR PT. NICOLE STATES THAT SHE WILL TRANSPORT PT TO ROOM 2103 FROM [facility] ONCE ORDERED TEST IS COMPLETED.
--- NOTE | 2018-12-09 16:35 | NUR ---
transfer from er by stretcher. oreinted to room. call light in reach. will cont. plan of care.
[2018-12-09 16:43] VITALS: BP 125/63; BMI 18.3
--- NOTE | 2018-12-09 18:18 | NUR ---
PT LYING SUPINE. CALL LIGHT W/I REACH. HISTORY, MED REQ, QUICKSTART, AND ASSESSMENT COMPLETED. PT DENIES ANY NEEDS. RR LABORED ON EXERTION ON 2L 02. WILL PASS REPORT AND CONTINUE WITH POC.
--- NOTE | 2018-12-09 19:44 | NUR ---
REPORT RECEIVED. INTRODUCED SELF TO PT. PT SITTING UP IN BED WITH EYES OPEN, RR EVEN AND UNLABORED. OXYGEN AT 2 LITERS BY NASAL CANNULA. HANDED PT PHONE. DENIES FURTHER NEEDS. NO S/S OF DISTRESS NOTED. CALL LIGHT IN REACH. BED IN LOW POSITION. WILL CTM.
[2018-12-09 20:00] VITALS: BP 86/62
[2018-12-10] VITALS: BP 117/84
--- NOTE | 2018-12-10 00:16 | NUR ---
AFTER COMPLETING HOME MED RECONCILLIATION THE PT STATED HE DID NOT RECALL TAKING HIS FLOMAX IN QUITE SOME TIME. WHEN ASKED IF HE HAD TROUBLE URINATING THE PT STATED "WELL IT DOESN'T COME OUT LIKE A FIRE HOSE ANYMORE". THE PT ALSO STATED HE DID TAKE A FEW MINUTES TO FINISH WHEN HE GETS UP TO URINATE. .
--- NOTE | 2018-12-10 01:06 | NUR ---
PT LYING IN BED WITH EYES CLOSED, RR EVEN AND UNLABORED. OXYGEN AT 4 LITERS CURRENTLY UP FROM 3 LITERS PREVIOUSLY. O2 SATURATION AT 96 PERCENT. NO S/S OF DISTRESS NOTED. BED IN LOW POSITION. CALL LIGHT IN REACH. WILL CTM.
--- NOTE | 2018-12-10 03:03 | NUR ---
PT LYING IN BED WITH EYES OPEN, RR EVEN AND UNLABORED. OXYGEN AT 4 LITERS BY NASAL CANNULA. TELEMETRY PLACED, RUNNING BE HIGH 40S TO LOWER 50S. NO S/S OF DISTRESS NOTED. BED IN LOW POSITION. CALL LIGHT IN REACH. DENIES FURTHER NEEDS. WILL CTM.
[2018-12-10 04:00] VITALS: BP 93/49
--- NOTE | 2018-12-10 04:12 | NUR ---
RN NOTE: PATIENT RESTING COMFORTABLY IN BED. RESPIRATIONS ARE EVEN AND UNLABORED. NOS/S OF DISTRESS. CALL LIGHT WITHIN REACH. WILL CPOC.
[2018-12-10 06:23] LABS: ANION GAP 12.5 mmol/L (8-16); CALCIUM 8.2 mg/dL (8.5-10.1); CARBON DIOXIDE 25.4 mmol/L (21.0-32.0); CREATININE - SERUM 1.9 mg/dL (0.6-1.3); POTASSIUM - SERUM 3.9 mmol/L (3.5-5.1)
--- NOTE | 2018-12-10 06:23 | NUR ---
PT SITTING UP IN BED WITH EYES OPEN, RR EVEN AND UNLABORED. OXYGEN AT 4 LITERS BY NASAL CANNULA. ORDERED ABX INFUSING THROUGH LEFT WRIST PIV. NO S/S OF DISTRESS. DENIES FURTHER NEEDS. STATES HAVING HAD TROUBLE SLEEPING LAST NIGHT. CALL LIGHT IN REACH. WILL CTM.
[2018-12-10 06:31] LABS: BASOPHILS 0.6 % (0-2); EOSINOPHILS 0.5 % (0-7); HEMATOCRIT 39.8 % (42.0-54.0); HEMOGLOBIN 13.7 g/dL (13.5-17.5); IMMATURE GRANULOCYTES 0.2 % (0-5); LYMPHOCYTES 11.3 % (15-50); MCH 33.1 pg (26.0-34.0); MCHC 34.4 g/dL (31.0-37.0); MCV 96.1 fL (80.0-100.0); MEAN PLATELET VOLUME 10.8 fL (7.4-10.4); MONOCYTES 13.5 % (2-11); NEUTROPHILS 73.9 % (40-80); PLATELET COUNT 237 10x3/uL (130-400); RBC 4.14 10x6/uL (4.20-6.10); RDW 12.8 % (11.5-14.5); WBC 8.2 10x3/uL (4.8-10.8)
--- NOTE | 2018-12-10 08:00 | NUR ---
RECIEVED BEDSIDE REPORT. AM ROUNDS COMPLETED. PT VSS, AAOX3, RESP UNLABORED, PT ON TELE, RUNNING SINUS BE OF 53. PT CURRENTLY RESTING IN BED WITH EYES OPEN, DENIES NEED FOR COMFORT CARE AT THE MOMENT. WILL CTM. CL IN REACH, BED IN LOW.
[2018-12-10 10:21] VITALS: Ht 182.9 cm; Wt 59.1 kg
[2018-12-10 10:34] VITALS: BP 102/48
[2018-12-10 13:06] VITALS: BP 107/47
[2018-12-10 16:17] VITALS: BP 97/47
--- NOTE | 2018-12-10 18:46 | NUR ---
PT CURRENTLY RESTING IN BED WITH EYES OPEN, NO SIGN OF DISTRESS. VSS. PT DENIES NEEDS FOR COMFORT CARE. WILL CTM, CL IN REACH, BED IN LOW.
--- NOTE | 2018-12-10 19:45 | NUR ---
REPORT RECEIVED. PT LYING IN BED WITH EYES OPEN, RR EVEN AND UNLABORED. OXYGEN AT 4 LITERS BY NASAL CANNULA. DOBUTAMINE INFUSING THROUGH LEFT ARM PIV ORDERED. INTRODUCED SELF TO PT. PT DENIES FURTHER NEEDS. NO S/S OF DISTRESS NOTED. BED IN LOW POSITION. PT URINAL EMPTIED, 400 MLS OF CONCENTRATED YELLOW OUTPUT. CALL LIGHT IN REACH. BED IN LOW POSITION. WILL CTM. CPOC.
[2018-12-10 19:54] VITALS: BP 103/46
--- NOTE | 2018-12-10 22:29 | NUR ---
EVENING ROUNDS COMPLETED. PT LYING IN BED WITH EYES OPEN, RR EVEN AND UNLABORED. OXYGEN AT 4 LITERS BY NASAL CANNULA. BED IN LOW POSITION. DENIES FURTHER NEEDS. DOBUTAMINE INFUSING ORDERED THROUGH LEFT WRIST PIV. NO S/S OF DISTRESS NOTED. CALL LIGHT IN REACH. WILL CTM. CPOC.
--- NOTE | 2018-12-11 01:13 | NUR ---
PT LYING IN BED WITH EYES OPEN, WATCHING TV. RR EVEN AND UNLABORED. NO S/S OF DISTRESS NOTED. DOBUTAMINE IV INFUSING ORDERED. BED IN LOW POSITION. DENIES FURTHER NEEDS. CALL LIGHT IN REACH. WILL CTM.
[2018-12-11 03:44] VITALS: BP 112/46
--- NOTE | 2018-12-11 03:49 | NUR ---
PT LYING IN BED WITH EYES OPEN, WATCHING TV, RR EVEN AND UNLABORED. BED IN LOW POSITION. IV DOBUTAMINE INFUSING ORDERED THROUGH LEFT WRIST PIV. DENIES FURTHER NEEDS. CL IN REACH. BED IN LOW POSITION. WILL CTM.
--- NOTE | 2018-12-11 05:00 | NUR ---
PT RESTING IN BED WITH NO DISTRESS. RESPS EVEN/NONLABORED. MONITOR AND CPOC. CALL LIGHT IN REACH. NO NEEDS AT THIS TIME.
[2018-12-11 05:11] LABS: BASOPHILS 0.3 % (0-2); EOSINOPHILS 0.1 % (0-7); HEMATOCRIT 37.3 % (42.0-54.0); HEMOGLOBIN 12.9 g/dL (13.5-17.5); IMMATURE GRANULOCYTES 0.2 % (0-5); LYMPHOCYTES 9.4 % (15-50); MCH 33.8 pg (26.0-34.0); MCHC 34.6 g/dL (31.0-37.0); MCV 97.6 fL (80.0-100.0); MEAN PLATELET VOLUME 10.5 fL (7.4-10.4); PLATELET COUNT 204 10x3/uL (130-400); RBC 3.82 10x6/uL (4.20-6.10); WBC 8.8 10x3/uL (4.8-10.8)
--- NOTE | 2018-12-11 05:28 | NUR ---
DOBUTAMINE DRIP ADJUSTED BY LAURO AYALA RN ACCORING TO NEW PT WEIGHT OF 127.5 POUNDS. WILL CTM.
[2018-12-11 05:50] LABS: ALBUMIN 2.2 g/dL (3.4-5.0); ANION GAP 15.3 mmol/L (8-16); BILIRUBIN - TOTAL 0.31 mg/dL (0.2-1.3); CALCIUM 8.6 mg/dL (8.5-10.1); CARBON DIOXIDE 24.6 mmol/L (21.0-32.0); CREATININE - SERUM 1.7 mg/dL (0.6-1.3); POTASSIUM - SERUM 3.9 mmol/L (3.5-5.1); PROTEIN - SERUM 6.5 g/dL (6.4-8.2)
--- NOTE | 2018-12-11 08:30 | NUR ---
AM ROUNDS COMPLETED, VSS, AA0X3, PACING 50'S ON TELE. RR UNLABORED, NO S/S OF DISTRESS. PT CURRENTLY IN BED WITH EYES OPEN. AM MEDS GIVEN. WILL CPOC. CL IN REACH, BED IN LOW.
[2018-12-11 09:27] VITALS: BP 97/52
[2018-12-11 11:42] VITALS: BP 103/48
[2018-12-11 15:57] VITALS: BP 108/51
[2018-12-11 20:00] VITALS: BP 110/60
--- NOTE | 2018-12-11 20:11 | NUR ---
EVENING ROUNDS COMPLETED. REPORT RECEIVED. PT SITTING UP IN BED WITH EYES OPEN, RR EVEN AND UNLABORED. OXYGEN AT 4 LITERS BY NASAL CANNULA. DOBUTAMINE INFUSING ORDERED THROUGH LEFT WRIST PIV. INTRODUCED SELF TO PT. PT DENIES FURTHER NEEDS. BED IN LOW POSITION. CL IN REACH. WILL CTM
--- NOTE | 2018-12-12 01:12 | NUR ---
PT LYING ON LEFT SIDE IN BED WITH EYES CLOSED, RR EVEN AND UL. NO S/S OF DISTRESS NOTED. 54 SINUS BE ON TELEMETRY. BED IN LOW POSITION. CL IN REACH. WILL CTM.
--- NOTE | 2018-12-12 03:05 | NUR ---
PT SITTING UP IN BED WITH EYES CLOSED, RR EVEN AND UL. BED IN LOW POSITION. NO S/S OF DISTRESS NOTED. CL IN REACH. DOBUTAMINE INFUSING ORDERED THROUGH LEFT WRIST PIV. URINAL WITHIN REACH. SINUS BE ON TELEMETRY. WILL CTM. CPOC.
[2018-12-12 04:00] VITALS: BP 101/55
--- NOTE | 2018-12-12 05:00 | NUR ---
PT RESTING IN BED WITH NO DISTRESS. RESPS EVEN/NONLABORED. CALL LIGHT IN REACH. MONITOR AND CPOC.
--- NOTE | 2018-12-12 08:00 | NUR ---
AM ROUNDS COMPLETED. VSS, AAOX3, RR UNLABORED, NO S/S OF DISTRESS. PT STATES HE WOULD LIKE TO WALK IN THE HALLWAY EVERY NOW AND THEN. MD STATES HE CAN WALK WITH PT. AM MEDS GIVEN. HELD DOBUTAMIN BECAUSE THE ONE FROM LAST NIGHT IS STILL INFUSING. PT DENIES ANY FURTHER NEED AT THIS TIME. WILL CTM. CL IN REACH, BED IN LOW. WILL CPOC.
[2018-12-12 08:56] VITALS: BP 112/62
--- NOTE | 2018-12-12 15:00 | NUR ---
PT CURRENLTY RESTING IN BED. VSS, NO S/S OF DISTRESS. IV DOBUTAMIN INFUSING PER PT WEIGHT. WILL CTM. CL IN REACH. BED IN LOW.
[2018-12-12 20:00] VITALS: BP 116/55
--- NOTE | 2018-12-12 20:15 | NUR ---
REST IN BED, CALL LIGHT IN REACH.
[2018-12-13 00:30] VITALS: BP 99/53
--- NOTE | 2018-12-13 03:59 | NUR ---
REST QUIELTY IN BED, CALL LIGHT IN REACH.
[2018-12-13 04:00] VITALS: BP 95/41
[2018-12-13 05:22] LABS: BASOPHILS 0.6 % (0-2); EOSINOPHILS 0.9 % (0-7); HEMATOCRIT 36.8 % (42.0-54.0); HEMOGLOBIN 12.4 g/dL (13.5-17.5); IMMATURE GRANULOCYTES 0.3 % (0-5); LYMPHOCYTES 9.9 % (15-50); MCHC 33.7 g/dL (31.0-37.0); MCV 97.9 fL (80.0-100.0); MEAN PLATELET VOLUME 10.9 fL (7.4-10.4); MONOCYTES 13.9 % (2-11); NEUTROPHILS 74.4 % (40-80); PLATELET COUNT 191 10x3/uL (130-400); RBC 3.76 10x6/uL (4.20-6.10); RDW 13.1 % (11.5-14.5); WBC 6.7 10x3/uL (4.8-10.8)
[2018-12-13 05:32] LABS: ANION GAP 11.9 mmol/L (8-16); BILIRUBIN - TOTAL 0.47 mg/dL (0.2-1.3); CALCIUM 8.3 mg/dL (8.5-10.1); CARBON DIOXIDE 28.9 mmol/L (21.0-32.0); CREATININE - SERUM 1.5 mg/dL (0.6-1.3); POTASSIUM - SERUM 3.8 mmol/L (3.5-5.1); PROTEIN - SERUM 6.3 g/dL (6.4-8.2)
[2018-12-13 07:00] VITALS: BP 95/43
--- NOTE | 2018-12-13 07:00 | NUR ---
CAME INTO PT ROOM THIS MORNING. AND FOUND ZOSYN CONNECTED TO THE DOBUTAMIN INFUSING. PT STATES HE DID NOT KNOW IF HE WAS GIVEN BOTH MEDS TOGETHER. WILL CTM.
--- NOTE | 2018-12-13 08:00 | NUR ---
AM ROUNDS COMPLETED PT AA0X3, VSS, BUT PRESSURE WAS RUNNING 90'S LAST NIGHT. PT STATES HE IS BREATHING BETTER. PT DENIES NEED FOR PAIN. WILL CPOC. CL IN REACH BED IN LOW.
--- NOTE | 2018-12-13 09:45 | NUR ---
PT OUT TO RADIOLOGY BY WHEELCHAIR. ASSESSED PT WEIGHT THIS AM. WILL CPOC.
--- NOTE | 2018-12-13 10:00 | NUR ---
PT BACK FROM RADIOLOGY. VSS, AAO, RR UNLABORED. PT DOBUTAMIN INFUSING. CL IN REACH, BED IN LOW. WILL CTM.
--- NOTE | 2018-12-13 10:20 | CN ---
PATIENT NAME:JUAN YEE MEDICAL RECORD: [id number] : 43 LOCATION:D. D.2103 ADMIT DATE: 12/09/18 ACCOUNT: [id number] CONSULTING PHYSICIAN: GABRIELA DAILEY MD REFERRING PHYSICIAN: AIDEN DUKES MD DATE OF CONSULTATION: 12/10/2018 DIAGNOSES: 1. Shortness of breath, dyspnea on exertion. 2. Congestive heart failure, chronic systolic dysfunction. 3. Ischemic cardiomyopathy. 4. Coronary artery disease. 5. Angina. 6. Recent PTCA to LAD diagonal. 7. ICD. 8. Ventricular tachycardia. 9. Pneumonia. HISTORY OF PRESENT ILLNESS: Mr. Yee is well known to us. He presents with shortness of breath, dyspnea on exertion with combination of congestive heart failure from chronic systolic dysfunction and an acute infectious process. He as well is having chest pain. His last cardiac catheterization revealed patency of only his LAD and diagonal with a severe ischemic cardiomyopathy, ejection fraction in the 20% range. He underwent PTCA of the diagonal, that was the only intervention that could be undertaken. He still has some episodes of chest discomfort. He has been treated for pneumonia since he has been in for the past 2 days. He feels much better now from the standpoint of shortness of breath. PHYSICAL EXAMINATION: GENERAL APPEARANCE: Well-nourished, well-developed, appears stated age. Level of distress, comfortable. PSYCHIATRIC: Mental status, alert, normal affect. Orientation, oriented to time, place and person. EYES: Lids and conjunctiva, noninjected. No discharge, no pallor. ENT: Lips, teeth, gums, normal dentition. Oropharynx, no cyanosis, no pallor. NECK: Carotid arteries, bilateral normal upstroke, no bruits, no thrills. JUGULAR VEINS: No jugular venous pressure or distention. CERVICAL LYMPH NODES: Nontender, nonenlarged. THYROID: Not enlarged. Nontender. No nodules. LUNGS: Respiratory effort, unlabored. CHEST: Normal curvature. No thoracic deformity. No chest wall tenderness. Percussion, resonant. Auscultation, clear. No wheezes, no rales, no rhonchi. CARDIOVASCULAR: Precordial exam, nondisplaced. No heaves or pericardial thrills. Rate and rhythm, regular. Heart sounds, normal S1, normal S2. No S3, no gallop, no rub. Systolic murmur, not heard. Diastolic murmur, not heard. EXTREMITIES: No cyanosis, no edema. Peripheral pulses, full and equal in all extremities, except as noted. No bruits appreciated. ABDOMEN: Soft, nondistended. Normal aorta. No bruit. Nontender. No masses. Liver, nontender, no hepatomegaly. Spleen, nontender, no splenomegaly. MUSCULOSKELETAL: No joint tenderness. No joint swelling. No erythema. NEUROLOGICAL: Normal gait, normal strength, normal tone. SKIN: Warm and dry. OVERALL IMPRESSION: Shortness of breath is secondary to a combination of the acute infectious process plus his chronic systolic dysfunction. We will put him CONSULT REPORT [id number] JUAN YEE on dobutamine for 24-48 hours from a heart failure standpoint. Otherwise, continue his cardiac medications. TRANSINT:[id number] Voice Confirmation ID: [id number] DOCUMENT ID: [id number] GABRIELA DAILEY MD at 1020 CC: [id number] DICTATION DATE: 12/10/18919 PAINTER SUPERVISOR: 12/10/18 1046 ADM IN [facility] [address] [place] [address]
[2018-12-13 13:02] VITALS: BP 108/49
[2018-12-13 16:31] VITALS: BP 107/58
[2018-12-13 20:00] VITALS: BP 103/44
--- NOTE | 2018-12-13 20:00 | NUR ---
INITIAL ROUNDS COMPLETED - PT A/0 X4, IV PATENT, DRESSING C/D/I. NO C/O PAIN OR DISCOMFORT AT IV SITE. NO S/S OF DISTRESS. VSS. WCTM AND FOLLOW POC. CL IN REACH, SR UP X2, BED IN LOWEST POSITION.
[2018-12-14 00:04] VITALS: BP 117/45
--- NOTE | 2018-12-14 01:00 | NUR ---
PT C/O MILD N/V. ALSO SEEMS VERY AGITATED WHEN THE IV ALARM GOES OFF. EDUCATED PT THAT WHEN REPOSITIONING THE ARM, THE IV TUBING CAN BEND, CAUSING THE ALARM TO GO OFF. PT VERBALIZED UNDERSTANDING. PLACED COLD RAG ON NECK AND FOREHEAD, STATED RELIEF OF N/V. VSS. WILL CONTINUE TO ASSESS, CL IN REACH, SR UP X2, BED IN LOWEST POSITION.
--- NOTE | 2018-12-14 02:57 | NUR ---
RESUMING PT CARE - PT SITTING UP IN BED WATCHING TV, STATES HE FEELS MUCH BETTER. DENIES ANY PAIN/DISCOMFORT/NEEDS AT THIS TIME. RR EVEN AND UL ON 4L 02 VIA NC. WILL CONTINUE TO ASSESS NEEDS. WILL PASS ON NEED FOR NAUSEA MEDICATION TO DAY NURSE. CL IN REACH, SR UPX2, BED IN LOWEST POSITION.
[2018-12-14 04:00] VITALS: BP 108/44
--- NOTE | 2018-12-14 05:43 | NUR ---
STOPPED CONT DOBUTAMINE PER DR. DAILEY. DC'D DOBUTAMINE AT 12/13 1028. DOBUTAMINE NOT ON EMAR, DOUBLE CHECK WITH MD ORDERS. JOSE GRAVES.
[2018-12-14 06:25] LABS: BASOPHILS 0.4 % (0-2); EOSINOPHILS 0.7 % (0-7); HEMATOCRIT 37.9 % (42.0-54.0); HEMOGLOBIN 12.9 g/dL (13.5-17.5); IMMATURE GRANULOCYTES 0.1 % (0-5); LYMPHOCYTES 14.2 % (15-50); MCH 33.3 pg (26.0-34.0); MCV 97.9 fL (80.0-100.0); MEAN PLATELET VOLUME 10.5 fL (7.4-10.4); MONOCYTES 11.3 % (2-11); NEUTROPHILS 73.3 % (40-80); PLATELET COUNT 176 10x3/uL (130-400); RBC 3.87 10x6/uL (4.20-6.10); RDW 13.2 % (11.5-14.5); WBC 6.7 10x3/uL (4.8-10.8)
[2018-12-14 06:56] LABS: ANION GAP 12.4 mmol/L (8-16); CALCIUM 8.4 mg/dL (8.5-10.1); CARBON DIOXIDE 28.5 mmol/L (21.0-32.0); CREATININE - SERUM 1.5 mg/dL (0.6-1.3); POTASSIUM - SERUM 3.9 mmol/L (3.5-5.1)
[2018-12-14 07:29] LABS: IMMUNOGLOBULIN A 454 mg/dL (61-437)
[2018-12-14 08:08] VITALS: BP 110/52
[2018-12-14 09:18] LABS: ANTI-GLOMERULAR BASMENT MEMBRN 4 units (0-20)
--- NOTE | 2018-12-14 10:12 | NUR ---
PT REFUSED SCD'S.
[2018-12-14 10:21] LABS: ANA REFLEX - ANTICHROMATIN ABS <0.2 AI (0.0-0.9); ANA REFLEX - CENTROMERE B ABS <0.2 AI (0.0-0.9); ANA REFLEX - DBL STRANDED DNA 18 IU/mL (0-9); ANA REFLEX - DIRECT Positive (Negative); ANA REFLEX - JO-1 AB <0.2 AI (0.0-0.9); ANA REFLEX - RNP ANTIBODIES 0.4 AI (0.0-0.9); ANA REFLEX - SCL-70 <0.2 AI (0.0-0.9); ANA REFLEX - SJOGRENS AB SSA <0.2 AI (0.0-0.9); ANA REFLEX - SJOGRENS AB SSB <0.2 AI (0.0-0.9); ANA REFLEX - SMITH AB <0.2 AI (0.0-0.9)
--- NOTE | 2018-12-14 10:51 | NUR ---
PT UP WALKING WITH PHYSICAL THERAPY.
--- NOTE | 2018-12-14 10:57 | NUR ---
AMBULATES WITH PT ASSIST. WILL CONT. PLAN OF CARE.
[2018-12-14 12:02] VITALS: BP 137/53
--- NOTE | 2018-12-14 12:40 | MORECARE ---
CASE MANAGEMENT DISCHARGE SUMMARY PATIENT: JUAN TREVINO UNIT: [id number] ADM DATE: 12/09/18 AGE: 73 : 43 SEX: M ROOM/BED: D.2103 AUTHOR: YOANDY,DOC PHYSICIAN: REFERRING PHYSICIAN: AIDEN DUKES MD DATE OF SERVICE: 12/14/18 Discharge Plan Patient Name: JUAN TREVINO Facility: [facility]:[place] : 1945 Planned Disposition: Home Anticipated Discharge Date: 12/16/18 Discharge Date: Expected LOS: 7 Initial Reviewer: [email or web address] Initial Review Date: 12/09/2018 Generated: 12/14/18 1:40 pm DCP- Discharge Planning Updated by [email or web address]: Vesna Barragan on 12/09/18 2:[address] Patient Name: JUAN TREVINO Admission Status: ER Accout number: [id number] Admission Date: 12-09-2018 : 1945 Admission Diagnosis: Attending: AIDEN DUKES Current LOS: 1 Anticipated DC Date: 12-12-2018 Planned Disposition: Home Primary Insurance: MEDICARE A & B Discharge Planning Comments: CM met with patient, his , and his son to complete initial dc planning assessment. CM educated patient on the CM role and verbal consent given by patient to complete assessment. Patient lives at home with his in a two story home. He does not have to go upstairs. At discharge patient plans to return home with his and feels this is a safe discharge. CM discussed availability of home health, rehab services, and medical equipment. Patient denied known discharge needs at this time. CM will continue to follow and will assist as needed with dc plans/needs. Director Of Math: Vesna Barragan RN, [facility] DCPIA - Discharge Planning Initial Assessment Updated by [email or web address]: Vesna Barragan on 12/09/18 3:28 pm * Is the patient Alert and Oriented? Yes * How many steps to enter\exit or inside your home? NOne * PCP Dr. Mcdaniel * [facility]acy [facility] * Preadmission Environment Home with Family * ADLs Independent * Equipment None * List name and contact numbers for known caregivers / representatives who currently or will assist patient after discharge: Александр Trevino - Son - [phone] Sweta Trevino - - [phone] * Verbal permission to speak to the caregivers and representatives has been obtained from the patient. Yes * Community resources currently utilized None * Additional services required to return to the preadmission environment? No * Can the patient safely return to the preadmission environment? Yes * Has this patient been hospitalized within the prior 30 days at any hospital? Yes Last DP export: 12/09/18 2:36 p Patient Name: JUAN TREVINO Page [id number] at 1240 All edits/amendments must be made on the electronic document DICTATION DATE: 12/14/18 124 FRONT MAKER: MARY 12/14/18 1240 RPT#: [id number] DC DATE: STATUS: ADM IN [facility] [address] [place] [address] END OF REPORT
--- NOTE | 2018-12-14 12:48 | MORECARE ---
CASE MANAGEMENT DISCHARGE SUMMARY PATIENT: JUAN TREVINO UNIT: [id number] ADM DATE: 12/09/18 AGE: 73 : 43 SEX: M ROOM/BED: D.2103 AUTHOR: YOANDY,DOC PHYSICIAN: REFERRING PHYSICIAN: AIDEN DUKES MD DATE OF SERVICE: 12/14/18 Discharge Plan Patient Name: JUAN TREVINO Facility: [facility]:[place] : 1945 Planned Disposition: Home Anticipated Discharge Date: 12/16/18 Discharge Date: Expected LOS: 7 Initial Reviewer: [email or web address] Initial Review Date: 12/09/2018 Generated: 12/14/18 1:48 pm DCP- Discharge Planning Updated by [email or web address]: Vesna Barragan on 12/09/18 2:[address] Patient Name: JUAN TREVINO Admission Status: ER Accout number: [id number] Admission Date: 12-09-2018 : 1945 Admission Diagnosis: Attending: AIDEN DUKES Current LOS: 1 Anticipated DC Date: 12-12-2018 Planned Disposition: Home Primary Insurance: MEDICARE A & B Discharge Planning Comments: CM met with patient, his , and his son to complete initial dc planning assessment. CM educated patient on the CM role and verbal consent given by patient to complete assessment. Patient lives at home with his in a two story home. He does not have to go upstairs. At discharge patient plans to return home with his and feels this is a safe discharge. CM discussed availability of home health, rehab services, and medical equipment. Patient denied known discharge needs at this time. CM will continue to follow and will assist as needed with dc plans/needs. Medical Administrative Assistant: Vesna Barragan RN, [facility] DCPIA - Discharge Planning Initial Assessment Updated by [email or web address]: Sacha Aguirre on 12/14/18 12:46 pm * Is the patient Alert and Oriented? Yes * How many steps to enter\exit or inside your home? NOne * PCP Dr. Mcdaniel * [facility] * Preadmission Environment Home with Family * ADLs Independent * Equipment Nebulizer * List name and contact numbers for known caregivers / representatives who currently or will assist patient after discharge: Александр Trevino - Son - [phone] Sweta Trevino - - [phone] * Verbal permission to speak to the caregivers and representatives has been obtained from the patient. Yes * Community resources currently utilized None * Additional services required to return to the preadmission environment? No * Can the patient safely return to the preadmission environment? Yes * Has this patient been hospitalized within the prior 30 days at any hospital? Yes Last DP export: 12/14/18 11:40 a Patient Name: JUAN TREVINO Page [id number] at 1248 All edits/amendments must be made on the electronic document DICTATION DATE: 12/14/181246 CLINIC ADMINISTRATOR: MARY 12/14/181246 RPT#: [id number] DC DATE: STATUS: ADM IN [facility] [address] [place] [address] END OF REPORT
--- NOTE | 2018-12-14 12:55 | MORECARE ---
CASE MANAGEMENT DISCHARGE SUMMARY PATIENT: JUAN TREVINO UNIT: [id number] ADM DATE: 12/09/18 AGE: 73 : 43 SEX: M ROOM/BED: D.2103 AUTHOR: YOANDY,DOC PHYSICIAN: REFERRING PHYSICIAN: AIDEN DUKES MD DATE OF SERVICE: 12/14/18 Discharge Plan Patient Name: JUAN TREVINO Facility: [facility]:[place] : 1945 Planned Disposition: Home Anticipated Discharge Date: 12/16/18 Discharge Date: Expected LOS: 7 Initial Reviewer: [email or web address] Initial Review Date: 12/09/2018 Generated: 12/14/18 1:55 pm Comments DCP- Discharge Planning Updated by [email or web address]: Sacha Campbell on 12/14/18 11:[address] Patient Name: JUAN TREVINO Encounter No: [id number] : 1945 Primary Insurance: MEDICARE A & B Anticipated DC Date: 12-16-2018 Planned Disposition: Home DCP follow-up note: CM RECEIVED ORDER FOR DISCHARGE PLANNING, NEBULIZER AND OXYGEN TESTING. CM SPOKE TO PT IN ROOM REGARDING DISCHARGE PLANNING AND NEEDS. PT REPORTS HAVING NEBULIZER AT HOME AND ONLY NEEDS THE PRESCRIPTION FOR MEDICATIONS TO USE IN IT. PT DENIES NEED OF REHAB OR HOME HEALTH SERVICES. PT REPORTS HE NEEDS OXYGEN TO GO HOME AND HAS NO PREFERENCE ON COMPANY TO PROVIDE THE SERVICE. IMPORTANT MESSAGE FROM MEDICARE PROVIDED AND EXPLAINED. CM RECEIVED OXYGEN TESTING, PT WAS 85% ON ROOM AIR AT REST, RECOVERY OF 92% ON 4 LITERS OXYGEN. CM CALLED [facility], , SPOKE TO JOSE C, PROVIDED REFERRAL INFORMATION. CM FAXED REFERRAL TO [facility], . OMID ADVISED THEY WILL DELIVER PORTABLE OXYGEN TO HOSPITAL TODAY AND WILL ARRANGE HOME OXYGEN WHEN PT ARRIVES AT HOME AFTER DISCHARGE. SACHA CAMPBELL CASE RONNELL DCP- Discharge Planning Updated by [id number]: Vesna Barragan on 12/09/18 2:[address] Patient Name: JUAN TREVINO Admission Status: ER Accout number: [id number] Admission Date: 12-09-2018 : 1945 Admission Diagnosis: Attending: AIDEN DUKES Current LOS: 1 Anticipated DC Date: 12-12-2018 Planned Disposition: Home Primary Insurance: MEDICARE A & B Discharge Planning Comments: CM met with patient, his , and his son to complete initial dc planning assessment. CM educated patient on the CM role and verbal consent given by patient to complete assessment. Patient lives at home with his in a two story home. He does not have to go upstairs. At discharge patient plans to return home with his and feels this is a safe discharge. CM discussed availability of home health, rehab services, and medical equipment. Patient denied known discharge needs at this time. CM will continue to follow and will assist as needed with dc plans/needs. Jig Maker: Vesna Barragan RN, [facility] DCPIA - Discharge Planning Initial Assessment Updated by [id number]: Sacha Campbell on 12/14/18 12:46 pm * Is the patient Alert and Oriented? Yes * How many steps to enter\exit or inside your home? NOne * PCP Dr. Mcdaniel * Pharmacy [facility] * Preadmission Environment Home with Family * ADLs Independent * Equipment Nebulizer * List name and contact numbers for known caregivers / representatives who currently or will assist patient after discharge: Александр Trevino - Son - [phone] Sweta Trveino - - [phone] * Verbal permission to speak to the caregivers and representatives has been obtained from the patient. Yes * Community resources currently utilized None * Additional services required to return to the preadmission environment? No * Can the patient safely return to the preadmission environment? Yes * Has this patient been hospitalized within the prior 30 days at any hospital? Yes External Providers External Provider: [facility] [place] Next Contact Date: 12/14/2018 Service Request Date: Service Type: Resolution: Reviewer: Comments: Last DP export: 12/14/18 11:48 a Patient Name: JUAN TREVINO Page [phone] at 1255 All edits/amendments must be made on the electronic document DICTATION DATE: 12/14/18 125 CAREER PROFESSIONAL: MARY 12/14/18 1255 RPT#: [id number] DC DATE: STATUS: ADM IN [facility] [address] [place] [address] END OF REPORT
[2018-12-14 16:14] VITALS: BP 111/55
--- NOTE | 2018-12-14 19:46 | NUR ---
RESUMED CARE OF PT, LYING IN BED RESPIRATIONS EVEN AND UNLABORED ON 3LPM VIA NC. 55 SB ON TELEMETRY. LEFT WRIST SALINE LOCKED. CALL LIGHT IN REACH. SEE NURSE ASSESSMENT.
[2018-12-14 20:00] VITALS: BP 115/48
[2018-12-15] VITALS: BP 101/59
[2018-12-15 04:00] VITALS: BP 102/50
[2018-12-15 04:48] LABS: BASOPHILS 0.3 % (0-2); EOSINOPHILS 0.9 % (0-7); HEMATOCRIT 37.8 % (42.0-54.0); HEMOGLOBIN 12.7 g/dL (13.5-17.5); IMMATURE GRANULOCYTES 0.3 % (0-5); LYMPHOCYTES 12.7 % (15-50); MCH 33.1 pg (26.0-34.0); MCHC 33.6 g/dL (31.0-37.0); MCV 98.4 fL (80.0-100.0); MEAN PLATELET VOLUME 10.5 fL (7.4-10.4); MONOCYTES 12.6 % (2-11); NEUTROPHILS 73.2 % (40-80); PLATELET COUNT 179 10x3/uL (130-400); RBC 3.84 10x6/uL (4.20-6.10); WBC 6.4 10x3/uL (4.8-10.8)
[2018-12-15 04:57] LABS: ANION GAP 10.9 mmol/L (8-16); CALCIUM 8.5 mg/dL (8.5-10.1); CREATININE - SERUM 1.4 mg/dL (0.6-1.3); POTASSIUM - SERUM 3.9 mmol/L (3.5-5.1)
--- NOTE | 2018-12-15 06:30 | NUR ---
NO CHANGES FROM PREVIOUS ASSESSMENT, CALL LIGHT IN REACH. AM MEDS PASSED.
[2018-12-15 07:57] VITALS: BP 94/44
--- NOTE | 2018-12-15 08:25 | NUR ---
PT STATES TO ME HE HAD HIS PACEAKER CHECKED EARLIER THIS MONTH AND THEY MADE ADJUSTMENTS TO IT.
--- NOTE | 2018-12-15 09:42 | NUR ---
RESP UL ON . RESTS IN BED WITHOUT NEEDS VOICED. CALL LIGHT IN REACH. WILL MONITOR.
--- NOTE | 2018-12-15 12:54 | NUR ---
Nutrition follow-up: Diet:2 gm sodium; Ensure BID PO intake ~75% average of meals Labs reviewed Last BM charted 12/11 Wt: 130# -> up 4# from admit RDN following.
[2018-12-15 14:18] LABS: ANCA - ANTIMYELOPEROXIDASE <9.0 U/mL (0.0-9.0); ANCA - ANTIPROTEINASE 3 <3.5 U/mL (0.0-3.5); ANCA - CYTOPLASMIC <1:20 titer (Neg:<1:20); ANCA - PERINUCLEAR <1:20 titer (Neg:<1:20)
--- NOTE | 2018-12-15 19:50 | NUR ---
INITIAL ROUNDS COMPLETED - PT SITTING UP IN BED WATCHING TV. A/O X4. DENIES ANY PAIN OR DISCOMFORT. INITIAL ASSESSMENT COMPLETED. L WRIST IV SL, PATENT, C/D/I. BRIEFLY SPOKE ABOUT PLANS FOR D/C'ING TOMORROW. NO FURTHER NEEDS AT THIS TIME. WCTM AND FOLLOW POC. CL IN REACH, SR UP X2, BED IN LOWEST POSITION.
[2018-12-15 20:00] VITALS: BP 106/52
[2018-12-15 20:08] LABS: IGG SUBCLASS 1 651 mg/dL (248-810); IGG SUBCLASS 2 225 mg/dL (130-555); IGG SUBCLASS 3 82 mg/dL (15-102); IGG SUBCLASS 4 8 mg/dL (2-96); IMMUNOGLOBULIN G 901 mg/dL (700-1600)
--- NOTE | 2018-12-16 04:32 | NUR ---
PT RESTING QUIETLY IN BED WITH EYES CLOSED. RR EVEN AND UL, NO S/S OF DISTRESS. SR PER CAGER OPERATOR. NO NEEDS NOTED AT THIS TIME. CL IN REACH, SR UPX2, BED IN LOWEST POSITION.
[2018-12-16 05:04] LABS: BASOPHILS 0.3 % (0-2); EOSINOPHILS 0.7 % (0-7); HEMATOCRIT 38.8 % (42.0-54.0); HEMOGLOBIN 12.9 g/dL (13.5-17.5); IMMATURE GRANULOCYTES 0.3 % (0-5); LYMPHOCYTES 11.1 % (15-50); MCH 33.3 pg (26.0-34.0); MCHC 33.2 g/dL (31.0-37.0); MCV 100.3 fL (80.0-100.0); MEAN PLATELET VOLUME 10.6 fL (7.4-10.4); NEUTROPHILS 73.6 % (40-80); PLATELET COUNT 186 10x3/uL (130-400); RBC 3.87 10x6/uL (4.20-6.10); RDW 13.2 % (11.5-14.5); WBC 7.6 10x3/uL (4.8-10.8)
[2018-12-16 05:12] LABS: ANION GAP 10.6 mmol/L (8-16); CALCIUM 8.9 mg/dL (8.5-10.1); CARBON DIOXIDE 29.9 mmol/L (21.0-32.0); CREATININE - SERUM 1.3 mg/dL (0.6-1.3); POTASSIUM - SERUM 4.5 mmol/L (3.5-5.1)
[2018-12-16] MEDS ORDERED: BROVANA15 MCG/2 M INH (08:05)
[2018-12-16] MEDS ORDERED: IPRAT-ALBUT 0.5-3 ML INH (08:06)
--- NOTE | 2018-12-16 09:02 | MORECARE ---
CASE MANAGEMENT DISCHARGE SUMMARY PATIENT: JUAN TREVINO UNIT: [id number] ADM DATE: 12/09/18 AGE: 73 : 43 SEX: M ROOM/BED: D.2103 AUTHOR: YOANDY,DOC PHYSICIAN: REFERRING PHYSICIAN: AIDEN DUKES MD DATE OF SERVICE: 12/16/18 Discharge Plan Patient Name: JUAN TREVINO Facility: [facility]:[place] : 1945 Planned Disposition: Home Anticipated Discharge Date: 12/16/18 Discharge Date: Expected LOS: 7 Initial Reviewer: [email or web address] Initial Review Date: 12/09/2018 Generated: 12/16/18 10:02 am Comments DCP- Discharge Planning Updated by [id number]: Sacha Campbell on 12/14/18 11:[address] Patient Name: JUAN TREVINO Encounter No: [id number] : 1945 Primary Insurance: MEDICARE A & B Anticipated DC Date: 12-16-2018 Planned Disposition: Home DCP follow-up note: CM RECEIVED ORDER FOR DISCHARGE PLANNING, NEBULIZER AND OXYGEN TESTING. CM SPOKE TO PT IN ROOM REGARDING DISCHARGE PLANNING AND NEEDS. PT REPORTS HAVING NEBULIZER AT HOME AND ONLY NEEDS THE PRESCRIPTION FOR MEDICATIONS TO USE IN IT. PT DENIES NEED OF REHAB OR HOME HEALTH SERVICES. PT REPORTS HE NEEDS OXYGEN TO GO HOME AND HAS NO PREFERENCE ON COMPANY TO PROVIDE THE SERVICE. IMPORTANT MESSAGE FROM MEDICARE PROVIDED AND EXPLAINED. CM RECEIVED OXYGEN TESTING, PT WAS 85% ON ROOM AIR AT REST, RECOVERY OF 92% ON 4 LITERS OXYGEN. CM CALLED [facility], , SPOKE TO JOSE C, PROVIDED REFERRAL INFORMATION. CM FAXED REFERRAL TO [facility], . OMID ADVISED THEY WILL DELIVER PORTABLE OXYGEN TO HOSPITAL TODAY AND WILL ARRANGE HOME OXYGEN WHEN PT ARRIVES AT HOME AFTER DISCHARGE. SACHA CAMPBELL CASE RONNELL DCP- Discharge Planning Updated by [id number]: Vesna Barragan on 12/09/18 2:[address] Patient Name: JUAN TREVINO Admission Status: ER Accout number: [id number] Admission Date: 12-09-2018 : 1945 Admission Diagnosis: Attending: AIDEN DUKES Current LOS: 1 Anticipated DC Date: 12-12-2018 Planned Disposition: Home Primary Insurance: MEDICARE A & B Discharge Planning Comments: CM met with patient, his , and his son to complete initial dc planning assessment. CM educated patient on the CM role and verbal consent given by patient to complete assessment. Patient lives at home with his in a two story home. He does not have to go upstairs. At discharge patient plans to return home with his and feels this is a safe discharge. CM discussed availability of home health, rehab services, and medical equipment. Patient denied known discharge needs at this time. CM will continue to follow and will assist as needed with dc plans/needs. Lead Sprinkler: Vesna Barragan RN, [facility] DCPIA - Discharge Planning Initial Assessment Updated by [id number]: Sacha Campbell on 12/14/18 12:46 pm * Is the patient Alert and Oriented? Yes * How many steps to enter\exit or inside your home? NOne * PCP Dr. Mcdaniel * Pharmacy [facility] * Preadmission Environment Home with Family * ADLs Independent * Equipment Nebulizer * List name and contact numbers for known caregivers / representatives who currently or will assist patient after discharge: Александр Trevino - Son - [phone] Sweta Mccloud - [phone] * Verbal permission to speak to the caregivers and representatives has been obtained from the patient. Yes * Community resources currently utilized None * Additional services required to return to the preadmission environment? No * Can the patient safely return to the preadmission environment? Yes * Has this patient been hospitalized within the prior 30 days at any hospital? 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
[2018-12-16 09:12] VITALS: BP 103/46
--- NOTE | 2018-12-16 09:57 | NUR ---
RESTS IN BED WITH EYES CLOSED. RESP UL ON . CALL LIGHT IN REACH. WILL CONT. PLAN OF CARE.
--- NOTE | 2018-12-16 10:45 | NUR ---
PT HAS LEFT SIDE PACEMKAER BUT HAS WENT FROM 60'S TO NOW 40'S. DR. ASHLIE FISCHER.
--- NOTE | 2018-12-16 10:46 | NUR ---
DR. DAILEY STATES HE IS GOING TO COME LOOK AT IT.
--- NOTE | 2018-12-16 13:24 | NUR ---
SPOKE WITH JOSE ANGEL IN [facility] HE STATED DR. DAILEY IS IN A PROCEDURE BUT HE WILL ASK HIM ABOUT COMING TO CHECK PT'S PACEMAKER.
--- NOTE | 2018-12-16 13:58 | NUR ---
DR. DAILEY IN PT'S ROOM CHECKING PACEMAKER.
--- NOTE | 2018-12-16 14:00 | NUR ---
DR. DAILEY STATES PACEMAKER IS FINE AND TO JUST HAVE PT FOLLOW UP WITH HIM IN A MONTH.
--- NOTE | 2018-12-16 14:02 | NUR ---
DR. DAILEY HERE TO CHECK PACEMAKER. NO ISSUES WITH PACEMAKER. ODERS RECEIVED TO CONT WITH DISCHARGE. O2 IS HERE.
[2018-12-16 14:37] VITALS: BP 100/52
--- NOTE | 2018-12-16 14:55 | NUR ---
TELEMETRY DC'D. LEFT WRIST 20G IV DC'D WITH CATH INTACT. DISCHARGE INSTRUCTIONS GIVEN TO PT AND PT'S THEY BOTH VERBALIZED UNDERSTANDING AND HAD NO FURTHER QUESTIONS. CHART COPY SIGNED. PT SWITCHED TO HOME O2 TANK AT 3L VIA NC. VOLUNTEER CALLED FOR WC.
--- NOTE | 2018-12-16 15:01 | NUR ---
PT TAKEN DOWN VIA WC BY VOLUNTEER ACCOMPANIED BY .
== END 2018-12-16 15:03 | disposition home or self-care (01) | DRG 189 ==
LOC: D.ER 12:42 → D.M2 14:57 → D.EDHOLD 14:57 → D.M2 15:22
PROVIDERS: Family Medicine; Internal Medicine Pulmonary Disease; ADMIT Family Medicine
DX: J96.01 Acute respiratory failure with hypoxia (principal); J15.6 Pneumonia due to other Gram-negative bacteria; J13 Pneumonia due to Streptococcus pneumoniae; J47.1 Bronchiectasis with (acute) exacerbation; I50.20 Unspecified systolic (congestive) heart failure; I13.0 Hypertensive heart and chronic kidney disease with heart failure and stage 1 through stage 4 chronic kidney disease, or unspecified chronic kidney disease; J47.0 Bronchiectasis with acute lower respiratory infection; I42.9 Cardiomyopathy, unspecified; E86.0 Dehydration; I25.10 Atherosclerotic heart disease of native coronary artery without angina pectoris; N18.9 Chronic kidney disease, unspecified; N40.0 Benign prostatic hyperplasia without lower urinary tract symptoms; Z72.0 Tobacco use